=== PATIENT | female | born 1990 | race Two or more races ===

== ENCOUNTER 2016-10-15 20:41 | Inpatient (IN) | payer OTHER ==
[~2016-10-15] VITALS: Ht 154.9 cm; Wt 58.0 kg
[~2016-10-15 20:41] MED LIST: ADDERALL XR 1010 MG PO; ADDERALL10 MG PO; ALPRAZOLAM0.25 M2 PO; AMBIEN5 MG PO; ANUSOL HC,ANUCO25 MG PR; ASPIR-LOW81 MG PO; ASPIRIN EC325 MG PO; ASPIRIN325 MG PO; ATARAX,VISTARIL25 MG PO; ATORVASTATIN CA40 MG PO; AVENTYL,PAMELOR50 MG PO; Advair HFA 115/21 IH; Afrin,Genasal Decon, NS; BACLOFEN PUMP; BACLOFEN10 MG PO; BACLOFEN20 MG PO; BACTRIM,SEPT1 TABLET PO; BOTOX100 UNITS IJ; Buspar PO; CARVEDILOL3.125 MG PO; CEFTIN500 MG PO; CELEXA10 M1 PO; CIPRO500 MG PO; CLONIDINE HCL0.1 MG PO; CLOPIDOGREL75 MG PO; COLACE100 MG PO; COLACE50 MG PO; COREG3.125 M1 PO; CYCLOBENZAPRINE10 MG PO; CYMBALTA60 MG PO; Cipro PO; Colace PO; Combivent IH; DULOXETINE HCL60 MG PO; ENDOCET 7.5-321 EACH PO; ERGOCALCIF50000 UNIT PO; ESCITALOPRAM OX20 MG PO; EXCEDRIN EXT1 TABLET; EXCEDRIN MIGRA1 EAC3 PO; FAMOTIDINE20 MG PO; FENTANYL1 EAC5 TD; FLEXERIL10 MG PO; FLORASTOR250 MG PO; FOLIC ACID1 MG PO; Flagyl PO; Folvite PO; GABAPENTIN300 MG PO; GABAPENTIN400 M1 PO; GABAPENTIN600 MG PO; KADIAN30 MG PO; KEFLEX500 MG PO; LAMICTAL200 MG PO; LEVAQUIN250 MG PO; LEVAQUIN500 MG PO; LEVAQUIN750 MG PO; LEVOFLOXACIN500 MG PO; LIDOCREAM15 GM TP; LIDODERM 5% P1 PATCH PO; LIDODERM 5% P1 PATCH TD; LISINOPRIL2.5 MG PO; LOVENOX40 MG/0.4 SC; LYRICA150 MG PO; LYRICA50 MG PO; LYRICA75 MG PO; LaMICtal PO; MACROBID100 MG PO; MEGACE20 MG PO; METHOTREXATE2.5 MG PO; MICONAZOLE NITR45 GM VG; MORPHINE SULFAT30 M2 PO; MS CONTIN,ORAMO30 MG PO; MS Contin,Oramorph S PO; Mycostatin TP; NABI650T PO; NAPROSYN500 MG PO; NAPROXEN500 MG PO; NEURONTIN300 MG PO; NEURONTIN600 MG PO; NEXIUM40 MG PO; NUCYNTA75 MG PO; Naprosyn PO; Neurontin PO; ONDANSETRON HCL4 MG PO; OXYCODONE HCL10 MG PO; OXYCODONE HCL15 MG PO; OXYCODONE HCL30 MG PO; OXYCODONE-ACET1 EACH PO; OXYCONTIN20 MG PO; OXYCONTIN30 MG PO; OXYCONTIN40 MG PO; OxyCONTIN PO; PERCOCET 5/31 TABLET PO; PERCOCET 7.51 TABLET PO; PHENERGAN25 MG PR; PLAVIX75 MG PO; POTASSIUM CITR10 MEQ PO; PRAVACHOL10 MG PO; PRENATAL PLUS1 EAC3 PO; PREVACID SOLUTAB; PROMETHAZINE HC25 M1 PO; PROTONIX40 MG PO; PROVERA,CYCRIN10 MG PO; Prevacid PO; Pristiq PO; Protonix PO; RANITIDINE HCL300 MG PO; ROZEREM8 MG PO; SENNA PLUS TAB1 EACH PO; SENNA-DOCUSATE1 EAC1 PO; SENNA-TIME S T1 EACH PO; SENOKOT8.6 MG PO; SILVADENE,SSD,T20 GM TP; Sodium Bicarbonate PO; TIZANIDINE HCL4 M1 PO; TIZANIDINE HCL4 MG PO; TOPAMAX50 MG PO; TOPIRAMATE50 MG PO; TORADOL10 MG PO; TRAZODONE HCL50 MG PO; TREXIMET 85-1 TABLET PO; TREXIMET 85-501 EACH PO; TROKENDI XR50 MG PO; TYLENOL REGULA325 MG PO; Treximet 85-500 PO; Tylenol Regular Stre PO; VENLAFAXINE HC150 M1 PO; VENLAFAXINE HCL75 M3 PO; VIBRAMYCIN100 MG PO; Vibramycin, Doryx PO; Vitamin B-12 PO; XANAX0.25 MG PO; XARELTO15 MG PO; XARELTO20 MG PO; Xanax PO; ZANAFLEX4 M1 PO; ZANAFLEX4 MG PO; ZANTAC150 MG PO; ZANTAC300 MG PO; ZOFRAN ODT4 MG PO; ZOFRAN4 MG PO; ZOLPIDEM TART6.25 MG PO; ZOLPIDEM TARTRAT5 MG PO; ZYVOX600 MG PO; Zofran ODT PO; [UNRECOGNIZED DRUG - OTHER] RC; baclofen pump; oxyCODONE PO
[2016-10-15 22:39] LABS: ADD MIUA? YES; BILIRUBIN NEGATIVE; BLOOD NEGATIVE; COLOR AMBER ((YELLOW)); GLUCOSE (STRIP) NEGATIVE; KETONES NEGATIVE; LEUKOCYTES MODERATE; NITRITE NEGATIVE; PROTEIN (STRIP) 100; SPECIFIC GRAVITY 1.005 (1.000-1.030); UROBILINOGEN 0.2 MG/DL (0.2-1.0)
[2016-10-15 22:55] LABS: HEMATOCRIT 33.2 % (36.0-46.0); MCH 27.9 PG (29.0-34.0); MCHC 32.5 G/DL (30.0-36.0); MCV 85.8 FL (83-99); NRBC (%) 0.4 /100 WBC (0-0); PLATELET COUNT 545 K/uL (156-360); RBC DIS.WIDTH-CV 19.8 % (11.8-14.6); RBC DIS.WIDTH-SD 57.1 % (39-53); RED BLOOD COUNT 3.87 M/uL (3.80-5.20); WHITE BLOOD COUNT 27.3 K/uL (4.1-10.2)
[2016-10-15 22:59] LABS: AMORPHOUS PHOSPHATE CRYSTALS 3+; CRYSTALS PRESENT; EPITHELIAL CELLS RARE /HPF; UCUL ADDED? YES; WHITE BLOOD CELLS 15-20 /HPF (0-5)
[2016-10-15 23:08] LABS: CHLORIDE 116 mEq/L (99-109); POTASSIUM 3.1 mEq/L (3.7-5.4); SODIUM 137 mEq/L (136-147)
[2016-10-15 23:10] LABS: GLUCOSE 94 mg/dL (70-99)
[2016-10-15 23:11] LABS: ANION GAP 15 MEQ/L (2-14)
[2016-10-15 23:12] LABS: TOTAL BILIRUBIN 0.3 mg/dL (0.0-1.0)
[2016-10-15 23:13] LABS: ALKALINE PHOSPHATASE 140 IU/L (3-129)
[2016-10-15 23:14] LABS: GFR ESTIMATE (CALCULATED) 28 mL/min/
[2016-10-15 23:17] LABS: LIPASE 77 U/L (1.0-51.0)
[2016-10-15 23:24] LABS: QUANTITATIVE HCG < 4.0 MIU/ML
[2016-10-15 23:36] LABS: UREA NITROGEN (BUN) 109 mg/dL (9-23)
[2016-10-15] MEDS ORDERED: SYNTHROID25 MCG PO (23:47)
[2016-10-15] MEDS ORDERED: PROZAC20 MG PO (23:47)
[2016-10-15] MEDS ORDERED: HYDROCODON-ACE1 EAC8 PO (23:49)
[2016-10-16] VITALS (26 sets, daily range): BP systolic 78–158; BP diastolic 44–88
[2016-10-16 00:23] LABS: BASE EXCESS -24.2 mEq/L (-3 to +3); BICARBONATE 5.8 mEq/L (22-26); CARBOXY HGB 1.5 % (0-5); COMMENTS - BLOOD GASES A+C+; DEVICE RA; METHEMOGLOBIN 3.7 % (0-1.5); PCO2 24 mm Hg (35-45); PO2 109 mm Hg (80-100); SITE RR; pH 6.99 (7.35-7.45)
[2016-10-16 00:24] LABS: TOTAL RESP RATE 13 resp/min
[2016-10-16 03:40] LABS: METH RESISTANT S AUREUS PCR NEGATIVE (NEGATIVE)
[2016-10-16 03:55] LABS: PROBE CHECK PASS; SPECIMEN PROCESSING CONTROL PASS
[2016-10-16 06:27] LABS: CARBON DIOXIDE (BICARBONATE) 7.5 MEQ/L (20-31)
[2016-10-16 06:55] LABS: HEMATOCRIT 28.7 % (36.0-46.0); MCH 28.3 PG (29.0-34.0); MCHC 32.4 G/DL (30.0-36.0); MCV 87.2 FL (83-99); MEAN PLAT.VOLUME 10.1 uM^3 (9.5-12.4); NRBC (%) 0.4 /100 WBC (0-0); PLATELET COUNT 439 K/uL (156-360); RBC DIS.WIDTH-CV 20.2 % (11.8-14.6); RBC DIS.WIDTH-SD 58.8 % (39-53); RED BLOOD COUNT 3.29 M/uL (3.80-5.20); WHITE BLOOD COUNT 22.9 K/uL (4.1-10.2)
[2016-10-16 07:41] LABS: ANION GAP 19 MEQ/L (2-14); CHLORIDE 119 MEQ/L (99-109); GFR ESTIMATE (CALCULATED) 36 mL/min/; GLUCOSE 138 mg/dL (70-99); SAMPLE HEMOLYSIS CHECK 0; SAMPLE ICTERIC CHECK 0; SAMPLE LIPEMIA CHECK 0; SODIUM 143 MEQ/L (136-147); UREA NITROGEN (BUN) 89 mg/dL (9-23)
[2016-10-16 07:42] LABS: POTASSIUM 2.4 MEQ/L (3.7-5.4)
[2016-10-16 08:22] LABS: BASE EXCESS -21.3 mEq/L (-3 to +3); BICARBONATE 7.1 mEq/L (22-26); CARBOXY HGB 0.9 % (0-5); COMMENTS - BLOOD GASES C+; DEVICE ROOM AIR; FI02 21 %; METHEMOGLOBIN 4.2 % (0-1.5); PCO2 24 mm Hg (35-45); PO2 117 mm Hg (80-100); SITE RB
[2016-10-16 08:23] LABS: pH 7.08 (7.35-7.45)
[2016-10-16 09:06] LABS: MAGNESIUM 1.8 mg/dl (1.3-2.7)
[2016-10-16 13:06] LABS: BASE EXCESS -17.9 mEq/L (-3 to +3); BICARBONATE 9.3 mEq/L (22-26); CARBOXY HGB 1.1 % (0-5); METHEMOGLOBIN 4.5 % (0-1.5); PCO2 26 mm Hg (35-45); PO2 211 mm Hg (80-100); pH 7.16 (7.35-7.45)
[2016-10-16 13:07] LABS: COMMENTS - BLOOD GASES A+C+; DEVICE VENT; FI02 40 %; MECHANICAL RATE 16 resp/min; MODE AC; PEEP 5 CM/H20; SITE LR; TIDAL VOLUME 380 ML; TOTAL RESP RATE 29 resp/min
[2016-10-16 14:09] LABS: ANION GAP 14 MEQ/L (2-14); CHLORIDE 116 MEQ/L (99-109); GFR ESTIMATE (CALCULATED) 41 mL/min/; POTASSIUM 2.6 MEQ/L (3.7-5.4); SAMPLE HEMOLYSIS CHECK 0; SAMPLE ICTERIC CHECK 0; SAMPLE LIPEMIA CHECK 0; SODIUM 141 MEQ/L (136-147); UREA NITROGEN (BUN) 84 mg/dL (9-23)
[2016-10-16 14:13] LABS: GLUCOSE 226 mg/dL (70-99)
[2016-10-16 14:14] LABS: MAGNESIUM 1.5 mg/dl (1.3-2.7)
[2016-10-16 16:51] LABS: ANION GAP 12 MEQ/L (2-14); CHLORIDE 120 MEQ/L (99-109); GFR ESTIMATE (CALCULATED) 41 mL/min/; GLUCOSE 169 mg/dL (70-99); MAGNESIUM 1.5 mg/dl (1.3-2.7); POTASSIUM 2.8 MEQ/L (3.7-5.4); SAMPLE HEMOLYSIS CHECK 0; SAMPLE ICTERIC CHECK 0; SAMPLE LIPEMIA CHECK 0; SODIUM 142 MEQ/L (136-147); UREA NITROGEN (BUN) 79 mg/dL (9-23)
[2016-10-16 20:39] LABS: ANION GAP 11 MEQ/L (2-14); CHLORIDE 119 MEQ/L (99-109); GFR ESTIMATE (CALCULATED) 48 mL/min/; GLUCOSE 119 mg/dL (70-99); MAGNESIUM 2.9 mg/dl (1.3-2.7); POTASSIUM 2.6 MEQ/L (3.7-5.4); SAMPLE HEMOLYSIS CHECK 0; SAMPLE ICTERIC CHECK 0; SAMPLE LIPEMIA CHECK 0; SODIUM 147 MEQ/L (136-147); UREA NITROGEN (BUN) 71 mg/dL (9-23)
[2016-10-17] VITALS (20 sets, daily range): BP systolic 81–120; BP diastolic 41–78
[2016-10-17 00:30] LABS: POINT-OF-CARE METER ID UU13113803
[2016-10-17 04:47] LABS: CHLORIDE 119 mEq/L (99-109); MAGNESIUM 2.6 mg/dL (1.3-2.7); SODIUM 151 mEq/L (136-147)
[2016-10-17 04:49] LABS: GLUCOSE 122 mg/dL (70-99)
[2016-10-17 04:50] LABS: ANION GAP 11 MEQ/L (2-14)
[2016-10-17 04:53] LABS: GFR ESTIMATE (CALCULATED) 48 mL/min/; UREA NITROGEN (BUN) 65 mg/dL (9-23)
[2016-10-17 04:54] LABS: CREATINE KINASE 61 IU/L (1-294)
[2016-10-17 04:57] LABS: POTASSIUM 3.6 mEq/L (3.7-5.4)
[2016-10-17 05:17] LABS: EOSINOPHIL (%) 0.4 % (0-5); EOSINOPHIL COUNT 0.1 K/uL (0-0.3); HEMATOCRIT 22.2 % (36.0-46.0); IMMATURE GRANULOCYTE (%) 0.7 % (0.0-0.7); IMMATURE GRANULOCYTE COUNT 0.2 K/uL; INSTRUMENT ABS NEUTROPHIL CT 24.3 K/uL; MCH 28.3 PG (29.0-34.0); MCHC 34.7 G/DL (30.0-36.0); MCV 81.6 FL (83-99); MEAN PLAT.VOLUME 10.1 uM^3 (9.5-12.4); MONOCYTE (%) 4.7 % (3-12); MONOCYTE COUNT 1.3 K/uL (0-0.8); NEUTROPHIL (%) 90.4 % (45-76); NEUTROPHIL COUNT 24.3 K/uL (1.8-6.4); NRBC (%) 0.2 /100 WBC (0-0); PLATELET COUNT 408 K/uL (156-360); RBC DIS.WIDTH-CV 18.2 % (11.8-14.6); RBC DIS.WIDTH-SD 47.7 % (39-53); RED BLOOD COUNT 2.72 M/uL (3.80-5.20); WHITE BLOOD COUNT 26.9 K/uL (4.1-10.2)
[2016-10-17 05:45] LABS: TRIGLYCERIDES 108 MG/DL (Normal: <150)
[2016-10-17 05:48] LABS: BASE EXCESS -0.7 mEq/L (-3 to +3); CARBOXY HGB 1.4 % (0-5); METHEMOGLOBIN 4.1 % (0-1.5)
[2016-10-17 05:50] LABS: BICARBONATE 22.6 mEq/L (22-26); PCO2 31 mm Hg (35-45); PO2 45 mm Hg (80-100); SITE LR; pH 7.47 (7.35-7.45)
[2016-10-17 05:51] LABS: COMMENTS - BLOOD GASES C+A+ MIXED VENOUS; DEVICE 840 VENT; FI02 30 %; MECHANICAL RATE 16 resp/min; MODE AC; PEEP 5 CM/H20; TIDAL VOLUME 380 ML; TOTAL RESP RATE 27 resp/min
[2016-10-17 08:51] LABS: BASE EXCESS 0.1 mEq/L (-3 to +3); BICARBONATE 20.6 mEq/L (22-26); CARBOXY HGB 1.2 % (0-5); METHEMOGLOBIN 4.2 % (0-1.5); PCO2 20 mm Hg (35-45); PO2 92 mm Hg (80-100)
[2016-10-17 08:52] LABS: COMMENTS - BLOOD GASES A+C+; DEVICE VENT; FI02 40 %; SITE LR
[2016-10-17 08:53] LABS: INSPIRATION TIME 0.83 seconds; MECHANICAL RATE 16 resp/min; MODE PC; PEEP 5 CM/H20; PRESSURE CONTROL VENTILATION 15 CM H20; TIDAL VOLUME 454 ML; TOTAL RESP RATE 34 resp/min; pH 7.62 (7.35-7.45)
[2016-10-17 10:45] LABS: BASE EXCESS -1.5 mEq/L (-3 to +3); BICARBONATE 22.4 mEq/L (22-26); CARBOXY HGB 1.1 % (0-5); METHEMOGLOBIN 4.3 % (0-1.5); PCO2 33 mm Hg (35-45); pH 7.44 (7.35-7.45)
[2016-10-17 11:07] LABS: IRON 24 MCG/DL (35-150)
[2016-10-17 11:29] LABS: FERRITIN 41 NG/ML (10-291)
[2016-10-17 12:26] LABS: COMMENTS - BLOOD GASES A+C+; DEVICE VENT; FI02 40 %; MECHANICAL RATE 16 resp/min; MODE ACVC; PO2 108 mm Hg (80-100); SITE LR; TIDAL VOLUME 380 ML; TOTAL RESP RATE 20 resp/min
[2016-10-17 12:27] LABS: PEEP 5 CM/H20
[2016-10-17 12:51] LABS: POINT-OF-CARE METER ID UU13113803
[2016-10-17 13:08] LABS: ANION GAP 11 MEQ/L (2-14); CHLORIDE 115 MEQ/L (99-109); GFR ESTIMATE (CALCULATED) 48 mL/min/; GLUCOSE 94 mg/dL (70-99); SAMPLE HEMOLYSIS CHECK 0; SAMPLE ICTERIC CHECK 0; SAMPLE LIPEMIA CHECK 0; SODIUM 148 MEQ/L (136-147); UREA NITROGEN (BUN) 55 mg/dL (9-23)
[2016-10-17 13:12] LABS: MAGNESIUM 2.3 mg/dl (1.3-2.7)
[2016-10-17 20:19] LABS: ANION GAP 15 MEQ/L (2-14); CHLORIDE 117 MEQ/L (99-109); GFR ESTIMATE (CALCULATED) 52 mL/min/; GLUCOSE 130 mg/dL (70-99); MAGNESIUM 2.1 mg/dl (1.3-2.7); POTASSIUM 3.2 MEQ/L (3.7-5.4); SAMPLE HEMOLYSIS CHECK 0; SAMPLE ICTERIC CHECK 0; SAMPLE LIPEMIA CHECK 0; SODIUM 150 MEQ/L (136-147); UREA NITROGEN (BUN) 53 mg/dL (9-23)
[2016-10-18] VITALS (28 sets, daily range): BP systolic 95–140; BP diastolic 48–87
[2016-10-18 05:17] LABS: POINT-OF-CARE METER ID UU13113803
[2016-10-18 05:58] LABS: ANION GAP 12 MEQ/L (2-14); CHLORIDE 116 MEQ/L (99-109); GFR ESTIMATE (CALCULATED) 48 mL/min/; POTASSIUM 3.8 MEQ/L (3.7-5.4); SAMPLE HEMOLYSIS CHECK 0; SAMPLE ICTERIC CHECK 0; SAMPLE LIPEMIA CHECK 0; SODIUM 146 MEQ/L (136-147); UREA NITROGEN (BUN) 45 mg/dL (9-23)
[2016-10-18 05:59] LABS: GLUCOSE 85 mg/dL (70-99)
[2016-10-18 06:22] LABS: EOSINOPHIL (%) 0.4 % (0-5); EOSINOPHIL COUNT 0.1 K/uL (0-0.3); IMMATURE GRANULOCYTE (%) 0.7 % (0.0-0.7); IMMATURE GRANULOCYTE COUNT 0.1 K/uL; INSTRUMENT ABS NEUTROPHIL CT 14.9 K/uL; LYMPHOCYTE COUNT 1.7 K/uL (1.0-2.8); MCH 28.6 PG (29.0-34.0); MONOCYTE (%) 8.1 % (3-12); MONOCYTE COUNT 1.5 K/uL (0-0.8); NEUTROPHIL (%) 81.3 % (45-76); NEUTROPHIL COUNT 14.9 K/uL (1.8-6.4); NRBC (%) 0.4 /100 WBC (0-0); RBC DIS.WIDTH-CV 19.7 % (11.8-14.6); RBC DIS.WIDTH-SD 50.9 % (39-53); RED BLOOD COUNT 2.38 M/uL (3.80-5.20)
[2016-10-18 06:47] LABS: WHITE BLOOD COUNT 18.4 K/uL (4.1-10.2)
[2016-10-18 06:57] LABS: MEAN PLAT.VOLUME 10.4 uM^3 (9.5-12.4); PLAT.SUFFICIENCY ADEQUATE
[2016-10-18 07:17] LABS: PLATELET COUNT 262 K/uL (156-360)
[2016-10-18 12:25] LABS: POINT-OF-CARE METER ID UU13113803
[2016-10-18 13:33] LABS: ANION GAP 13 MEQ/L (2-14); CHLORIDE 115 MEQ/L (99-109); GFR ESTIMATE (CALCULATED) 48 mL/min/; MAGNESIUM 1.8 mg/dl (1.3-2.7); POTASSIUM 3.8 MEQ/L (3.7-5.4); SAMPLE HEMOLYSIS CHECK 0; SAMPLE ICTERIC CHECK 0; SAMPLE LIPEMIA CHECK 0; SODIUM 143 MEQ/L (136-147); UREA NITROGEN (BUN) 43 mg/dL (9-23)
[2016-10-18 13:34] LABS: GLUCOSE 116 mg/dL (70-99)
[2016-10-18 18:08] LABS: POINT-OF-CARE METER ID UU13113803
[2016-10-18 20:15] LABS: ANION GAP 14 MEQ/L (2-14); CHLORIDE 114 MEQ/L (99-109); GFR ESTIMATE (CALCULATED) 52 mL/min/; GLUCOSE 89 mg/dL (70-99); POTASSIUM 4.3 MEQ/L (3.7-5.4); SAMPLE HEMOLYSIS CHECK 0; SAMPLE ICTERIC CHECK 0; SAMPLE LIPEMIA CHECK 0; SODIUM 143 MEQ/L (136-147); UREA NITROGEN (BUN) 42 mg/dL (9-23)
[2016-10-18 20:33] LABS: MAGNESIUM 2.6 mg/dl (1.3-2.7)
[2016-10-19] VITALS (17 sets, daily range): BP systolic 115–139; BP diastolic 57–88
[2016-10-19 00:18] LABS: POINT-OF-CARE METER ID UU13113803
[2016-10-19 00:59] LABS: BASOPHIL COUNT 0.1 K/uL (0-0.1); EOSINOPHIL (%) 0.5 % (0-5); EOSINOPHIL COUNT 0.1 K/uL (0-0.3); IMMATURE GRANULOCYTE (%) 0.8 % (0.0-0.7); IMMATURE GRANULOCYTE COUNT 0.2 K/uL; INSTRUMENT ABS NEUTROPHIL CT 17.8 K/uL; LYMPHOCYTE COUNT 0.9 K/uL (1.0-2.8); MCH 28.7 PG (29.0-34.0); MCHC 33.9 G/DL (30.0-36.0); MCV 84.6 FL (83-99); MEAN PLAT.VOLUME 10.2 uM^3 (9.5-12.4); MONOCYTE (%) 6.7 % (3-12); MONOCYTE COUNT 1.4 K/uL (0-0.8); NEUTROPHIL (%) 87.3 % (45-76); NEUTROPHIL COUNT 17.8 K/uL (1.8-6.4); NRBC (%) 0.1 /100 WBC (0-0); PLATELET COUNT 264 K/uL (156-360); RBC DIS.WIDTH-CV 17.8 % (11.8-14.6); WHITE BLOOD COUNT 20.4 K/uL (4.1-10.2)
[2016-10-19 01:19] LABS: CHLORIDE 114 mEq/L (99-109); SODIUM 143 mEq/L (136-147)
[2016-10-19 01:20] LABS: MAGNESIUM 2.4 mg/dL (1.3-2.7)
[2016-10-19 01:21] LABS: GLUCOSE 95 mg/dL (70-99)
[2016-10-19 01:23] LABS: ANION GAP 14 MEQ/L (2-14)
[2016-10-19 01:25] LABS: GFR ESTIMATE (CALCULATED) 41 mL/min/
[2016-10-19 01:26] LABS: UREA NITROGEN (BUN) 44 mg/dL (9-23)
[2016-10-19 02:28] LABS: SAMPLE HEMOLYSIS CHECK 0; SAMPLE ICTERIC CHECK 0; SAMPLE LIPEMIA CHECK 0
[2016-10-19 05:52] LABS: POINT-OF-CARE METER ID UU14174217
[2016-10-19 06:10] LABS: BASOPHIL COUNT 0.1 K/uL (0-0.1); EOSINOPHIL (%) 0.3 % (0-5); EOSINOPHIL COUNT 0.1 K/uL (0-0.3); HEMATOCRIT 32.7 % (36.0-46.0); IMMATURE GRANULOCYTE (%) 0.7 % (0.0-0.7); IMMATURE GRANULOCYTE COUNT 0.1 K/uL; INSTRUMENT ABS NEUTROPHIL CT 16.9 K/uL; LYMPHOCYTE COUNT 1.4 K/uL (1.0-2.8); MCH 28.6 PG (29.0-34.0); MCHC 33.6 G/DL (30.0-36.0); MCV 84.9 FL (83-99); MEAN PLAT.VOLUME 10.6 uM^3 (9.5-12.4); MONOCYTE (%) 5.5 % (3-12); MONOCYTE COUNT 1.1 K/uL (0-0.8); NEUTROPHIL (%) 86.3 % (45-76); NEUTROPHIL COUNT 16.9 K/uL (1.8-6.4); NRBC (%) 0.2 /100 WBC (0-0); PLATELET COUNT 245 K/uL (156-360); RBC DIS.WIDTH-CV 18.4 % (11.8-14.6); RBC DIS.WIDTH-SD 50.9 % (39-53); RED BLOOD COUNT 3.85 M/uL (3.80-5.20); WHITE BLOOD COUNT 19.5 K/uL (4.1-10.2)
[2016-10-19 07:57] LABS: ANION GAP 15 MEQ/L (2-14); CHLORIDE 114 MEQ/L (99-109); GFR ESTIMATE (CALCULATED) 41 mL/min/; GLUCOSE 85 mg/dL (70-99); MAGNESIUM 2.6 mg/dl (1.3-2.7); POTASSIUM 4.1 MEQ/L (3.7-5.4); SAMPLE HEMOLYSIS CHECK 0; SAMPLE ICTERIC CHECK 0; SAMPLE LIPEMIA CHECK 0; SODIUM 145 MEQ/L (136-147); UREA NITROGEN (BUN) 43 mg/dL (9-23)
[2016-10-19 10:35] LABS: BASE EXCESS -6.7 mEq/L (-3 to +3); BICARBONATE 18.5 mEq/L (22-26); CARBOXY HGB 1.2 % (0-5); METHEMOGLOBIN 2.8 % (0-1.5)
[2016-10-19 10:36] LABS: PCO2 35 mm Hg (35-45); PO2 121 mm Hg (80-100); pH 7.33 (7.35-7.45)
[2016-10-19 10:37] LABS: COMMENTS - BLOOD GASES NAC+; CONTINUOUS POS AIRWAY PRESSURE 5 cm H2O; DEVICE 840; FI02 30 %; MODE TUBE COMPENSATION; SITE LR; TOTAL RESP RATE 20 resp/min
[2016-10-19 12:38] LABS: POINT-OF-CARE METER ID UU14174217
[2016-10-19 18:15] LABS: POINT-OF-CARE METER ID UU14174217
[2016-10-19 22:14] LABS: ANION GAP 14 MEQ/L (2-14); CHLORIDE 111 MEQ/L (99-109); GFR ESTIMATE (CALCULATED) 44 mL/min/; GLUCOSE 100 mg/dL (70-99); MAGNESIUM 2.2 mg/dl (1.3-2.7); POTASSIUM 3.2 MEQ/L (3.7-5.4); SAMPLE HEMOLYSIS CHECK 0; SAMPLE ICTERIC CHECK 0; SAMPLE LIPEMIA CHECK 0; SODIUM 144 MEQ/L (136-147); UREA NITROGEN (BUN) 37 mg/dL (9-23)
[2016-10-20] VITALS (8 sets, daily range): BP systolic 111–151; BP diastolic 56–79
[2016-10-20 07:29] LABS: EOSINOPHIL (%) 1.7 % (0-5); EOSINOPHIL COUNT 0.2 K/uL (0-0.3); HEMATOCRIT 32.6 % (36.0-46.0); IMMATURE GRANULOCYTE (%) 0.5 % (0.0-0.7); IMMATURE GRANULOCYTE COUNT 0.1 K/uL; INSTRUMENT ABS NEUTROPHIL CT 9.4 K/uL; LYMPHOCYTE COUNT 1.1 K/uL (1.0-2.8); MCH 28.8 PG (29.0-34.0); MCHC 32.8 G/DL (30.0-36.0); MCV 87.9 FL (83-99); MEAN PLAT.VOLUME 10.3 uM^3 (9.5-12.4); MONOCYTE (%) 6.1 % (3-12); MONOCYTE COUNT 0.7 K/uL (0-0.8); NEUTROPHIL (%) 81.7 % (45-76); NEUTROPHIL COUNT 9.4 K/uL (1.8-6.4); PLATELET COUNT 177 K/uL (156-360); RBC DIS.WIDTH-CV 18.7 % (11.8-14.6); RBC DIS.WIDTH-SD 56.9 % (39-53); RED BLOOD COUNT 3.71 M/uL (3.80-5.20); WHITE BLOOD COUNT 11.5 K/uL (4.1-10.2)
[2016-10-20 08:00] LABS: ANION GAP 13 MEQ/L (2-14); CHLORIDE 111 MEQ/L (99-109); GFR ESTIMATE (CALCULATED) 44 mL/min/; GLUCOSE 80 mg/dL (70-99); MAGNESIUM 2.1 mg/dl (1.3-2.7); POTASSIUM 3.8 MEQ/L (3.7-5.4); SAMPLE HEMOLYSIS CHECK 0; SAMPLE ICTERIC CHECK 0; SAMPLE LIPEMIA CHECK 0; SODIUM 142 MEQ/L (136-147); UREA NITROGEN (BUN) 35 mg/dL (9-23)
[2016-10-21] VITALS: BP 109/69
[2016-10-21 04:00] VITALS: BP 93/53
[2016-10-21 06:32] LABS: EOSINOPHIL (%) 2.4 % (0-5); EOSINOPHIL COUNT 0.2 K/uL (0-0.3); HEMATOCRIT 32.9 % (36.0-46.0); IMMATURE GRANULOCYTE (%) 0.5 % (0.0-0.7); IMMATURE GRANULOCYTE COUNT 0.1 K/uL; INSTRUMENT ABS NEUTROPHIL CT 7.4 K/uL; LYMPHOCYTE COUNT 1.1 K/uL (1.0-2.8); MCH 29.1 PG (29.0-34.0); MCHC 33.1 G/DL (30.0-36.0); MCV 87.7 FL (83-99); MEAN PLAT.VOLUME 10.5 uM^3 (9.5-12.4); MONOCYTE (%) 8.9 % (3-12); MONOCYTE COUNT 0.9 K/uL (0-0.8); NEUTROPHIL (%) 76.2 % (45-76); NEUTROPHIL COUNT 7.4 K/uL (1.8-6.4); PLATELET COUNT 175 K/uL (156-360); RBC DIS.WIDTH-CV 18.4 % (11.8-14.6); RBC DIS.WIDTH-SD 56.5 % (39-53); RED BLOOD COUNT 3.75 M/uL (3.80-5.20); WHITE BLOOD COUNT 9.7 K/uL (4.1-10.2)
[2016-10-21 06:37] LABS: CARBON DIOXIDE (BICARBONATE) 24.2 MEQ/L (20-31)
[2016-10-21 07:02] LABS: ANION GAP 11 MEQ/L (2-14); CHLORIDE 108 MEQ/L (99-109); GFR ESTIMATE (CALCULATED) 48 mL/min/; GLUCOSE 93 mg/dL (70-99); MAGNESIUM 1.8 mg/dl (1.3-2.7); SAMPLE HEMOLYSIS CHECK 0; SAMPLE ICTERIC CHECK 0; SAMPLE LIPEMIA CHECK 0; SODIUM 141 MEQ/L (136-147); UREA NITROGEN (BUN) 29 mg/dL (9-23)
[2016-10-21 08:00] VITALS: BP 110/74
[2016-10-21 08:09] LABS: INTACT PARATHYROID HORMONE 414 pg/mL (10-69)
[2016-10-21 12:30] VITALS: BP 121/94
[2016-10-21 19:00] VITALS: BP 125/95
[2016-10-21 22:30] VITALS: BP 133/84
[2016-10-22 06:09] LABS: BASOPHIL COUNT 0.1 K/uL (0-0.1); EOSINOPHIL (%) 3.3 % (0-5); EOSINOPHIL COUNT 0.3 K/uL (0-0.3); IMMATURE GRANULOCYTE (%) 0.7 % (0.0-0.7); IMMATURE GRANULOCYTE COUNT 0.1 K/uL; INSTRUMENT ABS NEUTROPHIL CT 5.5 K/uL; LYMPHOCYTE COUNT 1.2 K/uL (1.0-2.8); MCH 28.6 PG (29.0-34.0); MCHC 31.4 G/DL (30.0-36.0); MCV 91.1 FL (83-99); MEAN PLAT.VOLUME 10.4 uM^3 (9.5-12.4); MONOCYTE (%) 13.1 % (3-12); MONOCYTE COUNT 1.1 K/uL (0-0.8); NEUTROPHIL (%) 67.8 % (45-76); NEUTROPHIL COUNT 5.5 K/uL (1.8-6.4); PLATELET COUNT 169 K/uL (156-360); RBC DIS.WIDTH-CV 18.6 % (11.8-14.6); RED BLOOD COUNT 4.06 M/uL (3.80-5.20); WHITE BLOOD COUNT 8.1 K/uL (4.1-10.2)
[2016-10-22 06:40] LABS: ANION GAP 9 MEQ/L (2-14); CHLORIDE 112 MEQ/L (99-109); GFR ESTIMATE (CALCULATED) 57 mL/min/; GLUCOSE 80 mg/dL (70-99); SAMPLE HEMOLYSIS CHECK 0; SAMPLE ICTERIC CHECK 0; SAMPLE LIPEMIA CHECK 0; SODIUM 143 MEQ/L (136-147); UREA NITROGEN (BUN) 20 mg/dL (9-23)
[2016-10-22] MEDS ORDERED: NABI650T PO (07:16)
[2016-10-22] MEDS ORDERED: ROCALTROL0.5 MCG PO (07:16)
[2016-10-22] MEDS ORDERED: ROCEPHIN 2 GM VI2 GM IV (07:16)
[2016-10-22] MEDS ORDERED: K-DUR20 MEQ PO (07:16)
[2016-10-22] MEDS ORDERED: COLACE100 MG PO (07:16)
[2016-10-22 08:00] VITALS: BP 128/85
== END 2016-10-22 11:05 | disposition home or self-care (01) | DRG 871 ==
LOC: EME 20:41 → EDOF 10-16 01:06 → 4WEST 10-16 01:06
PROVIDERS: Emergency Medicine; Internal Medicine; Internal Medicine Critical Care Medicine; Internal Medicine Nephrology; Obstetrics & Gynecology; Pediatrics; Physician Assistant
PROC: 0BH17EZ Insertion of Endotracheal Airway into Trachea, Via Natural or Artificial Opening (ICD-10-PCS; principal; 2016-10-16)
PROC: 02HV33Z Insertion of Infusion Device into Superior Vena Cava, Percutaneous Approach (ICD-10-PCS; principal; 2016-10-16)
PROC: 5A1945Z Respiratory Ventilation, 24-96 Consecutive Hours (ICD-10-PCS; principal; 2016-10-16)
DX: A41.9 Sepsis, unspecified organism (principal); G93.40 Encephalopathy, unspecified; J96.01 Acute respiratory failure with hypoxia; L89.613 Pressure ulcer of right heel, stage 3; N12 Tubulo-interstitial nephritis, not specified as acute or chronic; E87.0 Hyperosmolality and hypernatremia; N17.9 Acute kidney failure, unspecified; E87.2 Acidosis; G82.20 Paraplegia, unspecified; R65.20 Severe sepsis without septic shock; E87.6 Hypokalemia; N31.9 Neuromuscular dysfunction of bladder, unspecified; Z87.440 Personal history of urinary (tract) infections; G89.29 Other chronic pain; N20.0 Calculus of kidney; F32.9 Major depressive disorder, single episode, unspecified; R41.82 Altered mental status, unspecified; E83.51 Hypocalcemia; D64.9 Anemia, unspecified; E03.9 Hypothyroidism, unspecified; E86.9 Volume depletion, unspecified
CPT/HCPCS: 36600; 71010; 74176; 80048; 80048 91; 80053; 80069; 81003; 82272; 82306; 82330; 82550; 82607; 82652 90; 82728; 82746; 82803; 82948; 83540; 83605; 83690; 83735; 83970; 84100; 84439; 84443; 84466; 84478; 84702; 85025; 85025 91; 85027; 86850; 86900; 86901; 86920; 87040; 87070; 87077; 87086; 87186; 87205; 87641; 93005; 94002; 94003; 94640; 94640 76; 94799; 97530 GP; 99202; 99281; 99285; J0610; J0692; J0696; J1644; J1815; J1940; J2020; J2060; J2405; J2704; J3010; J3475; J3480; J7030; J7050; J7070; J7120; P9016

== ENCOUNTER 2017-03-02 19:54 | Inpatient (IN) | payer OTHER ==
[~2017-03-02] VITALS: Ht 154.9 cm; Wt 53.2 kg
[~2017-03-02 19:54] MED LIST changes: +HYDROCODON-ACE1 EAC8 PO; +K-DUR20 MEQ PO; +PROZAC20 MG PO; +ROCALTROL0.5 MCG PO; +ROCEPHIN 2 GM VI2 GM IV; +SYNTHROID25 MCG PO
[2017-03-02 20:56] LABS: ADD MIUA? YES; BILIRUBIN NEGATIVE; BLOOD NEGATIVE; COLOR AMBER ((YELLOW)); GLUCOSE (STRIP) NEGATIVE; KETONES 5; LEUKOCYTES MODERATE; NITRITE NEGATIVE; PROTEIN (STRIP) >=500; UROBILINOGEN 0.2 MG/DL (0.2-1.0)
[2017-03-02 21:11] LABS: HEMATOCRIT 33.4 % (36.0-46.0); MCH 30.7 PG (29.0-34.0); MCHC 34.4 G/DL (30.0-36.0); MCV 89.1 FL (83-99); MEAN PLAT.VOLUME 10.1 uM^3 (9.5-12.4); NRBC (%) 0.1 /100 WBC (0-0); PLATELET COUNT 417 K/uL (156-360); RBC DIS.WIDTH-CV 15.1 % (11.8-14.6); RBC DIS.WIDTH-SD 49.7 % (39-53); RED BLOOD COUNT 3.75 M/uL (3.80-5.20); WHITE BLOOD COUNT 23.4 K/uL (4.1-10.2)
[2017-03-02 21:12] LABS: AMORPHOUS PHOSPHATE CRYSTALS 3+; BACTERIA 2+ /HPF; EPITHELIAL CELLS 2+ /HPF; MUCUS NONE SEEN /LPF; RED BLOOD CELLS 0-5 /HPF (0-5); UCUL ADDED? YES
[2017-03-02 21:20] LABS: CHLORIDE 112 mEq/L (99-109); POTASSIUM 2.8 mEq/L (3.7-5.4); SODIUM 136 mEq/L (136-147)
[2017-03-02 21:21] LABS: GLUCOSE 97 mg/dL (70-99)
[2017-03-02 21:23] LABS: ANION GAP 19 MEQ/L (2-14)
[2017-03-02 21:25] LABS: GFR ESTIMATE (CALCULATED) 22 mL/min/
[2017-03-02 21:33] LABS: TROP-I INTERPRETATION NEGATIVE; TROPONIN-I < 0.01 ng/mL (0.0-0.30)
[2017-03-02 21:52] LABS: UREA NITROGEN (BUN) 115 mg/dL (9-23)
[2017-03-03] VITALS (10 sets, daily range): BP systolic 103–136; BP diastolic 59–76
[2017-03-03 15:19] LABS: BASE EXCESS -18.4 mEq/L (-3 to +3); CARBOXY HGB 1.4 % (0-5); COMMENTS - BLOOD GASES A+C+; FI02 21 %; MECHANICAL RATE 14 resp/min; METHEMOGLOBIN 2.5 % (0-1.5); PCO2 21 mm Hg (35-45); PO2 110 mm Hg (80-100); SITE LR
[2017-03-03 15:20] LABS: pH 7.19 (7.35-7.45)
[2017-03-03 16:24] LABS: AMPHETAMINES QUANT VALUE 0 NG/ML; BARBITUATES QUANT VALUE 0 NG/ML; BENZODIAZEPINES QUANT VALUE 0 NG/ML; BENZODIAZEPINES, URINE SCREEN Negative (200 ng/mL); PHENCYCLIDINE QUANT VALUE 0 NG/ML
[2017-03-03 18:00] LABS: ANION GAP 18 MEQ/L (2-14); CHLORIDE 118 MEQ/L (99-109); GFR ESTIMATE (CALCULATED) 27 mL/min/; GLUCOSE 126 mg/dL (70-99); MAGNESIUM 1.9 mg/dl (1.3-2.7); POTASSIUM 2.6 MEQ/L (3.7-5.4); SAMPLE HEMOLYSIS CHECK 0; SAMPLE ICTERIC CHECK 0; SAMPLE LIPEMIA CHECK 0; UREA NITROGEN (BUN) 100 mg/dL (9-23)
[2017-03-03 18:03] LABS: SODIUM 143 MEQ/L (136-147)
[2017-03-03 18:45] LABS: METH RESISTANT S AUREUS PCR NEGATIVE (NEGATIVE)
[2017-03-03 18:51] LABS: PROBE CHECK PASS; SPECIMEN PROCESSING CONTROL PASS
[2017-03-03 22:17] LABS: EOSINOPHIL (%) 0.1 % (0-5); HEMATOCRIT 26.2 % (36.0-46.0); IMMATURE GRANULOCYTE (%) 0.8 % (0.0-0.7); IMMATURE GRANULOCYTE COUNT 0.1 K/uL; INSTRUMENT ABS NEUTROPHIL CT 16.6 K/uL; LYMPHOCYTE COUNT 0.5 K/uL (1.0-2.8); MCH 30.3 PG (29.0-34.0); MCHC 34.7 G/DL (30.0-36.0); MCV 87.3 FL (83-99); MONOCYTE (%) 6.6 % (3-12); MONOCYTE COUNT 1.2 K/uL (0-0.8); NEUTROPHIL (%) 89.9 % (45-76); NEUTROPHIL COUNT 16.6 K/uL (1.8-6.4); NRBC (%) 0.2 /100 WBC (0-0); PLATELET COUNT 303 K/uL (156-360); RBC DIS.WIDTH-CV 15.1 % (11.8-14.6); RBC DIS.WIDTH-SD 48.1 % (39-53); WHITE BLOOD COUNT 18.4 K/uL (4.1-10.2)
[2017-03-03 22:26] LABS: CHLORIDE 121 mEq/L (99-109); POTASSIUM 2.5 mEq/L (3.7-5.4); SODIUM 148 mEq/L (136-147)
[2017-03-03 22:27] LABS: GLUCOSE 118 mg/dL (70-99)
[2017-03-03 22:29] LABS: ANION GAP 15 MEQ/L (2-14)
[2017-03-03 22:31] LABS: GFR ESTIMATE (CALCULATED) 32 mL/min/
[2017-03-03 22:39] LABS: PROTHROMBIN TIME 11.5 SEC (10.2-12.9)
[2017-03-03 22:41] LABS: UREA NITROGEN (BUN) 106 mg/dL (9-23)
[2017-03-03 22:42] LABS: PTT 30.5 SEC (25-37)
[2017-03-04] VITALS (22 sets, daily range): BP systolic 95–128; BP diastolic 58–92
[2017-03-04 02:41] LABS: CHLORIDE 122 mEq/L (99-109); SODIUM 149 mEq/L (136-147)
[2017-03-04 02:43] LABS: GLUCOSE 110 mg/dL (70-99)
[2017-03-04 02:44] LABS: ANION GAP 14 MEQ/L (2-14)
[2017-03-04 02:47] LABS: GFR ESTIMATE (CALCULATED) 32 mL/min/
[2017-03-04 02:48] LABS: UREA NITROGEN (BUN) 95 mg/dL (9-23)
[2017-03-04 02:49] LABS: POTASSIUM 3.1 mEq/L (3.7-5.4)
[2017-03-04 05:16] LABS: BASE EXCESS -9.6 mEq/L (-3 to +3); BICARBONATE 14.5 mEq/L (22-26); CARBOXY HGB 1.4 % (0-5); COMMENTS - BLOOD GASES C+; FI02 21 %; METHEMOGLOBIN 2.3 % (0-1.5); PCO2 25 mm Hg (35-45); PO2 93 mm Hg (80-100); SITE LR; TOTAL RESP RATE 15 resp/min; pH 7.37 (7.35-7.45)
[2017-03-04 05:59] LABS: HEMATOCRIT 26.3 % (36.0-46.0); MCH 30.3 PG (29.0-34.0); MCHC 34.6 G/DL (30.0-36.0); MCV 87.7 FL (83-99); MEAN PLAT.VOLUME 10.7 uM^3 (9.5-12.4); NRBC (%) 0.2 /100 WBC (0-0); PLATELET COUNT 261 K/uL (156-360); RBC DIS.WIDTH-CV 15.2 % (11.8-14.6); RBC DIS.WIDTH-SD 48.2 % (39-53); WHITE BLOOD COUNT 15.5 K/uL (4.1-10.2)
[2017-03-04 07:12] LABS: ABS NEUTROPHIL COUNT 14.4; ANISOCYTOSIS 2+; BAND NEUTROPHILS 0.8 % (0-8.0); EOSINOPHIL ABS CT 0; INSTRUMENT ABS NEUTROPHIL CT 13.3 K/uL; LYMPHOCYTES 3.5 % (15.0-45.0); MACROCYTES 2+; PLAT.SUFFICIENCY ADEQUATE; SEG.NEUTROPHILS 92.2 % (46.0-76.0)
[2017-03-04 07:18] LABS: ALKALINE PHOSPHATASE 73 IU/L (3-129); ANION GAP 16 MEQ/L (2-14); CHLORIDE 124 MEQ/L (99-109); GFR ESTIMATE (CALCULATED) 36 mL/min/; GLUCOSE 108 mg/dL (70-99); SAMPLE HEMOLYSIS CHECK 1; SAMPLE ICTERIC CHECK 0; SAMPLE LIPEMIA CHECK 0; SODIUM 151 MEQ/L (136-147); TOTAL BILIRUBIN 0.4 MG/DL (0.0-1.0); UREA NITROGEN (BUN) 87 mg/dL (9-23)
[2017-03-04 07:28] LABS: POTASSIUM 3.9 MEQ/L (3.7-5.4)
[2017-03-04 08:03] LABS: INTACT PARATHYROID HORMONE 79 pg/mL (10-69)
[2017-03-04 17:57] LABS: UR CREATININE CONCENTRATION 8.4 MG/DL
[2017-03-04 18:29] LABS: ANION GAP 11 MEQ/L (2-14); CHLORIDE 128 MEQ/L (99-109); GFR ESTIMATE (CALCULATED) 41 mL/min/; GLUCOSE 90 mg/dL (70-99); POTASSIUM 3.2 MEQ/L (3.7-5.4); SAMPLE HEMOLYSIS CHECK 0; SAMPLE ICTERIC CHECK 0; SAMPLE LIPEMIA CHECK 0; SODIUM 154 MEQ/L (136-147); UREA NITROGEN (BUN) 83 mg/dL (9-23)
[2017-03-05] VITALS (11 sets, daily range): BP systolic 105–125; BP diastolic 58–87
[2017-03-05 06:13] LABS: EOSINOPHIL (%) 0.5 % (0-5); EOSINOPHIL COUNT 0.1 K/uL (0-0.3); HEMATOCRIT 21.5 % (36.0-46.0); IMMATURE GRANULOCYTE (%) 0.8 % (0.0-0.7); IMMATURE GRANULOCYTE COUNT 0.1 K/uL; LYMPHOCYTE COUNT 1.5 K/uL (1.0-2.8); MCH 31.4 PG (29.0-34.0); MCHC 35.8 G/DL (30.0-36.0); MCV 87.8 FL (83-99); MEAN PLAT.VOLUME 10.9 uM^3 (9.5-12.4); MONOCYTE COUNT 1.3 K/uL (0-0.8); NEUTROPHIL (%) 72.7 % (45-76); NRBC (%) 0.3 /100 WBC (0-0); PLATELET COUNT 187 K/uL (156-360); RBC DIS.WIDTH-CV 15.2 % (11.8-14.6); RED BLOOD COUNT 2.45 M/uL (3.80-5.20)
[2017-03-05 06:43] LABS: ANION GAP 8 MEQ/L (2-14); CHLORIDE 126 MEQ/L (99-109); GFR ESTIMATE (CALCULATED) 38 mL/min/; GLUCOSE 72 mg/dL (70-99); POTASSIUM 3.2 MEQ/L (3.7-5.4); SAMPLE HEMOLYSIS CHECK 0; SAMPLE ICTERIC CHECK 0; SAMPLE LIPEMIA CHECK 0; SODIUM 149 MEQ/L (136-147); UREA NITROGEN (BUN) 73 mg/dL (9-23)
[2017-03-05 11:56] LABS: IRON 62 MCG/DL (35-150)
[2017-03-05 12:40] LABS: HEMATOCRIT 24.8 % (36.0-46.0); MCH 30.5 PG (29.0-34.0); MCHC 34.7 G/DL (30.0-36.0); MCV 87.9 FL (83-99); MEAN PLAT.VOLUME 10.6 uM^3 (9.5-12.4); NRBC (%) 0.2 /100 WBC (0-0); PLATELET COUNT 200 K/uL (156-360); RBC DIS.WIDTH-CV 15.5 % (11.8-14.6); RED BLOOD COUNT 2.82 M/uL (3.80-5.20); WHITE BLOOD COUNT 10.9 K/uL (4.1-10.2)
[2017-03-05 20:23] LABS: ANION GAP 10 MEQ/L (2-14); CHLORIDE 121 MEQ/L (99-109); GFR ESTIMATE (CALCULATED) 48 mL/min/; SAMPLE HEMOLYSIS CHECK 0; SAMPLE ICTERIC CHECK 0; SAMPLE LIPEMIA CHECK 0; SODIUM 145 MEQ/L (136-147); UREA NITROGEN (BUN) 63 mg/dL (9-23)
[2017-03-05 20:29] LABS: GLUCOSE 111 mg/dL (70-99)
[2017-03-05] MEDS ORDERED: OXYCONTIN20 MG PO (20:47)
[2017-03-05] MEDS ORDERED: ENDOCET 7.5-321 EACH PO (20:54)
[2017-03-06] VITALS: BP 127/83
[2017-03-06 04:00] VITALS: BP 120/82
[2017-03-06 04:48] LABS: HEMATOCRIT 22.5 % (36.0-46.0); MCH 30.7 PG (29.0-34.0); MCHC 35.1 G/DL (30.0-36.0); MCV 87.5 FL (83-99); MEAN PLAT.VOLUME 10.5 uM^3 (9.5-12.4); NRBC (%) 0.3 /100 WBC (0-0); PLATELET COUNT 147 K/uL (156-360); RBC DIS.WIDTH-CV 14.9 % (11.8-14.6); RBC DIS.WIDTH-SD 47.5 % (39-53); RED BLOOD COUNT 2.57 M/uL (3.80-5.20); WHITE BLOOD COUNT 11.3 K/uL (4.1-10.2)
[2017-03-06 05:11] LABS: CHLORIDE 119 mEq/L (99-109); POTASSIUM 2.6 mEq/L (3.7-5.4); SODIUM 142 mEq/L (136-147)
[2017-03-06 05:13] LABS: GLUCOSE 96 mg/dL (70-99)
[2017-03-06 05:14] LABS: ANION GAP 10 MEQ/L (2-14)
[2017-03-06 05:28] LABS: GFR ESTIMATE (CALCULATED) 48 mL/min/; UREA NITROGEN (BUN) 63 mg/dL (9-23)
[2017-03-06 09:00] VITALS: BP 120/74
[2017-03-06 12:30] LABS: CARBON DIOXIDE (BICARBONATE) 15.7 MEQ/L (20-31)
[2017-03-06 12:36] VITALS: BP 126/78
[2017-03-06 13:04] LABS: ANION GAP 9 MEQ/L (2-14); CHLORIDE 119 MEQ/L (99-109); GFR ESTIMATE (CALCULATED) 52 mL/min/; GLUCOSE 107 mg/dL (70-99); SAMPLE HEMOLYSIS CHECK 0; SAMPLE ICTERIC CHECK 0; SAMPLE LIPEMIA CHECK 0; SODIUM 144 MEQ/L (136-147); UREA NITROGEN (BUN) 52 mg/dL (9-23)
[2017-03-06 13:20] LABS: POTASSIUM 3.5 MEQ/L (3.7-5.4)
[2017-03-06 16:02] VITALS: BP 135/84
[2017-03-06 19:20] VITALS: BP 109/68
[2017-03-06 20:29] LABS: ANION GAP 11 MEQ/L (2-14); CHLORIDE 119 MEQ/L (99-109); POTASSIUM 3.3 MEQ/L (3.7-5.4); SAMPLE HEMOLYSIS CHECK 0; SAMPLE ICTERIC CHECK 0; SAMPLE LIPEMIA CHECK 0; SODIUM 147 MEQ/L (136-147)
[2017-03-06 20:32] LABS: MAGNESIUM 1.7 mg/dl (1.3-2.7)
[2017-03-06 20:34] LABS: GFR ESTIMATE (CALCULATED) 48 mL/min/; GLUCOSE 98 mg/dL (70-99); UREA NITROGEN (BUN) 48 mg/dL (9-23)
[2017-03-07] VITALS: BP 124/85
[2017-03-07 04:15] VITALS: BP 163/82
[2017-03-07 08:45] VITALS: BP 124/83
[2017-03-07 09:49] LABS: HEMATOCRIT 23.5 % (36.0-46.0); MCH 31.5 PG (29.0-34.0); MCHC 34.9 G/DL (30.0-36.0); MCV 90.4 FL (83-99); MEAN PLAT.VOLUME 10.6 uM^3 (9.5-12.4); NRBC (%) 0.3 /100 WBC (0-0); PLATELET COUNT 158 K/uL (156-360); RBC DIS.WIDTH-CV 16.3 % (11.8-14.6); RBC DIS.WIDTH-SD 52.5 % (39-53); WHITE BLOOD COUNT 7.6 K/uL (4.1-10.2)
[2017-03-07 10:26] LABS: ANION GAP 10 MEQ/L (2-14); CHLORIDE 117 MEQ/L (99-109); GFR ESTIMATE (CALCULATED) 52 mL/min/; GLUCOSE 100 mg/dL (70-99); MAGNESIUM 1.4 mg/dl (1.3-2.7); POTASSIUM 3.5 MEQ/L (3.7-5.4); SAMPLE HEMOLYSIS CHECK 0; SAMPLE ICTERIC CHECK 0; SAMPLE LIPEMIA CHECK 0; SODIUM 144 MEQ/L (136-147); UREA NITROGEN (BUN) 43 mg/dL (9-23)
[2017-03-07 11:55] VITALS: BP 121/71
[2017-03-07 17:47] VITALS: BP 134/88
[2017-03-07 18:07] LABS: ANION GAP 9 MEQ/L (2-14); CHLORIDE 118 MEQ/L (99-109); GFR ESTIMATE (CALCULATED) 52 mL/min/; GLUCOSE 97 mg/dL (70-99); POTASSIUM 4.1 MEQ/L (3.7-5.4); SAMPLE HEMOLYSIS CHECK 0; SAMPLE ICTERIC CHECK 0; SAMPLE LIPEMIA CHECK 0; SODIUM 144 MEQ/L (136-147); UREA NITROGEN (BUN) 36 mg/dL (9-23)
[2017-03-07 21:00] VITALS: BP 147/84
[2017-03-08 00:45] VITALS: BP 141/80
[2017-03-08 04:17] VITALS: BP 128/74
[2017-03-08 07:40] LABS: ANION GAP 12 MEQ/L (2-14); CHLORIDE 113 MEQ/L (99-109); GFR ESTIMATE (CALCULATED) 52 mL/min/; GLUCOSE 86 mg/dL (70-99); POTASSIUM 4.2 MEQ/L (3.7-5.4); SAMPLE HEMOLYSIS CHECK 0; SAMPLE ICTERIC CHECK 0; SAMPLE LIPEMIA CHECK 0; SODIUM 142 MEQ/L (136-147); UREA NITROGEN (BUN) 27 mg/dL (9-23)
[2017-03-08] MEDS ORDERED: CEFTIN500 MG PO (07:40)
[2017-03-08] MEDS ORDERED: OXYCODONE HCL5 MG PO (07:40)
[2017-03-08] MEDS ORDERED: ENDOCET 5-3251 EACH PO (07:40)
[2017-03-08 09:00] VITALS: BP 127/63
[2017-03-08 10:36] LABS: MAGNESIUM 1.3 mg/dl (1.3-2.7)
[2017-03-08] MEDS ORDERED: RANITIDINE HCL300 MG PO (11:49)
[2017-03-08] MEDS ORDERED: K-DUR20 MEQ PO (11:49)
[2017-03-08] MEDS ORDERED: PROZAC20 MG PO (11:49)
[2017-03-08] MEDS ORDERED: NABI650T PO (11:49)
[2017-03-08] MEDS ORDERED: TUMS500 MG PO (11:49)
[2017-03-08] MEDS ORDERED: ADDERALL XR 1010 MG PO (11:49)
[2017-03-08] MEDS ORDERED: SYNTHROID25 MCG PO (11:49)
== END 2017-03-08 13:25 | disposition home health service (06) | DRG 871 ==
LOC: EME → EDBD 19:54 → EME 19:54 → 4WEST 23:25 → EDOF 23:25 → 4EAST 23:25 → ENRESERV 23:29 → 4EAST 03-03 02:39 → ENRESERV 03-03 15:47 → 4WEST 03-03 16:46 → ENRESERV 03-03 16:46 → 4WEST 03-04 12:11 → ENRESERV 03-06 06:46 → 4EAST 03-06 08:39 → ENRESERV 03-07 08:50 → CANRESERV 03-07 08:50 → 4EAST 03-08 13:25
PROVIDERS: Emergency Medicine; Hospitalist; Internal Medicine; Internal Medicine Critical Care Medicine; Internal Medicine Nephrology; Pediatrics; Physician Assistant; Specialist
DX: A41.51 Sepsis due to Escherichia coli [E. coli] (principal); R65.20 Severe sepsis without septic shock; N39.0 Urinary tract infection, site not specified; N17.9 Acute kidney failure, unspecified; T40.601A Poisoning by unspecified narcotics, accidental (unintentional), initial encounter; F11.20 Opioid dependence, uncomplicated; E87.4 Mixed disorder of acid-base balance; G93.41 Metabolic encephalopathy; E83.51 Hypocalcemia; E83.42 Hypomagnesemia; E87.0 Hyperosmolality and hypernatremia; E86.0 Dehydration; E87.6 Hypokalemia; E83.39 Other disorders of phosphorus metabolism; E55.9 Vitamin D deficiency, unspecified; N18.3 Chronic kidney disease, stage 3 (moderate); N25.81 Secondary hyperparathyroidism of renal origin; E03.9 Hypothyroidism, unspecified; D64.9 Anemia, unspecified; J45.909 Unspecified asthma, uncomplicated; F17.200 Nicotine dependence, unspecified, uncomplicated; M54.6 Pain in thoracic spine; G82.20 Paraplegia, unspecified; N31.2 Flaccid neuropathic bladder, not elsewhere classified; G89.29 Other chronic pain; K59.00 Constipation, unspecified; F32.9 Major depressive disorder, single episode, unspecified; F41.9 Anxiety disorder, unspecified; Z86.14 Personal history of Methicillin resistant Staphylococcus aureus infection; Z86.718 Personal history of other venous thrombosis and embolism; Z88.0 Allergy status to penicillin; Z98.1 Arthrodesis status; I25.2 Old myocardial infarction
CPT/HCPCS: 36600; 70450; 71010; 74000; 80048; 80048 91; 80053; 80069; 80306 90; 81003; 82140; 82306; 82330; 82436; 82570; 82803; 83540; 83605; 83735; 83970; 84133; 84300; 84466; 84484; 85007; 85025; 85027; 85610; 85730; 86038; 87040; 87077; 87086; 87186; 87641; 87801; 99281; 99285; G0480; J0692; J0696; J0881; J1644; J2060; J2310; J2405; J3370; J3475; J3480; J7030; J7040; J7050; J7070; J7120

== ENCOUNTER 2017-04-13 22:58 | Emergency (ER) | payer OTHER ==
[~2017-04-13] VITALS: Ht 154.9 cm; Wt 65.9 kg
[~2017-04-13 22:58] MED LIST changes: +ENDOCET 5-3251 EACH PO; +OXYCODONE HCL5 MG PO; +TUMS500 MG PO
[2017-04-14 00:32] LABS: EOSINOPHIL (%) 0.9 % (0-5); EOSINOPHIL COUNT 0.1 K/uL (0-0.3); IMMATURE GRANULOCYTE (%) 0.3 % (0.0-0.7); INSTRUMENT ABS NEUTROPHIL CT 7.7 K/uL; LYMPHOCYTE COUNT 1.3 K/uL (1.0-2.8); MCH 30.4 PG (29.0-34.0); MCHC 31.1 G/DL (30.0-36.0); MEAN PLAT.VOLUME 10.4 uM^3 (9.5-12.4); MONOCYTE (%) 5.9 % (3-12); MONOCYTE COUNT 0.6 K/uL (0-0.8); NEUTROPHIL (%) 79.3 % (45-76); NEUTROPHIL COUNT 7.7 K/uL (1.8-6.4); RED BLOOD COUNT 3.59 M/uL (3.80-5.20); WHITE BLOOD COUNT 9.7 K/uL (4.1-10.2)
[2017-04-14 00:37] LABS: MCV 97.5 FL (83-99); PLATELET COUNT 207 K/uL (156-360)
[2017-04-14 00:43] LABS: CHLORIDE 111 mEq/L (99-109); POTASSIUM 4.9 mEq/L (3.7-5.4); SODIUM 139 mEq/L (136-147)
[2017-04-14 00:45] LABS: GLUCOSE 100 mg/dL (70-99)
[2017-04-14 00:47] LABS: ANION GAP 7 MEQ/L (2-14); TOTAL BILIRUBIN 0.3 mg/dL (0.0-1.0)
[2017-04-14 00:49] LABS: ALKALINE PHOSPHATASE 84 IU/L (3-129); GFR ESTIMATE (CALCULATED) 44 mL/min/
[2017-04-14 00:50] LABS: UREA NITROGEN (BUN) 16 mg/dL (9-23)
[2017-04-14 00:52] LABS: LIPASE 22 U/L (1.0-51.0)
[2017-04-14 01:42] LABS: SERUM ETHYL ALCOHOL < 10 mg/dL
[2017-04-14 01:45] LABS: SALICYLATE < 5.0 MG/DL (15-30)
[2017-04-14 02:06] LABS: ADD MIUA? YES; BILIRUBIN NEGATIVE; BLOOD MODERATE; COLOR AMBER ((YELLOW)); GLUCOSE (STRIP) NEGATIVE; KETONES NEGATIVE; LEUKOCYTES LARGE; NITRITE POSITIVE; PROTEIN (STRIP) 100; UROBILINOGEN 0.2 MG/DL (0.2-1.0)
[2017-04-14 02:17] LABS: ADD MEDTOX COMMENT Y; AMPHETAMINE NEGATIVE (500 ng/mL); BARBITURATES NEGATIVE (200 ng/mL); BENZODIAZEPINES NEGATIVE (150 ng/mL); COCAINE NEGATIVE (150 ng/mL); INTERNAL CONTROLS VALID? YES; METHADONE NEGATIVE (200 ng/mL); METHAMPHETAMINE NEGATIVE (500 ng/mL); OPIATES (MORPHINE) NEGATIVE (100 ng/mL); OXYCODONE PRESUMPTIVE POSITIVE (100 ng/mL); PHENCYCLIDINE NEGATIVE (25 ng/mL); PROPOXYPHENE NEGATIVE (300 ng/mL); THC CANNABINOIDS PRESUMPTIVE POSITIVE (50 ng/mL); TRICYCLIC ANTIDEPRESSANTS NEGATIVE (300 ng/mL)
[2017-04-14 02:28] LABS: BACTERIA 3+ /HPF; WHITE BLOOD CELLS TNTC /HPF (0-5)
[2017-04-14 02:29] LABS: URINE COMMENT FIELD OBSCURED BY
[2017-04-14 03:34] VITALS: BP 120/109
== END 2017-04-14 03:35 | disposition home or self-care (01) ==
LOC: EME 22:58 → EXP 22:58
PROVIDERS: Physician Assistant
DX: T42.8X1A Poisoning by antiparkinsonism drugs and other central muscle-tone depressants, accidental (unintentional), initial encounter (principal); G82.20 Paraplegia, unspecified; J45.909 Unspecified asthma, uncomplicated; F32.9 Major depressive disorder, single episode, unspecified; I25.2 Old myocardial infarction; F41.9 Anxiety disorder, unspecified; Z87.440 Personal history of urinary (tract) infections; Z87.891 Personal history of nicotine dependence; Z88.0 Allergy status to penicillin
CPT/HCPCS: 71020; 80053; 81003; 83605; 83690; 84999; 85025; 99281; 99285; G0480; J7030

== ENCOUNTER 2017-09-26 13:16 | Inpatient (IN) | payer OTHER ==
[2017-09-26] VITALS (9 sets, daily range): BP systolic 78–103; BP diastolic 30–62
[~2017-09-26] VITALS: Ht 154.9 cm; Wt 52.8 kg
[2017-09-26 13:58] LABS: BASOPHIL (%) 0.1 % (0-1); EOSINOPHIL (%) 0.2 % (0-5); EOSINOPHIL COUNT 0.1 K/uL (0-0.3); IMMATURE GRANULOCYTE (%) 2.2 % (0.0-0.7); LYMPHOCYTE (%) 4.3 % (15-42); LYMPHOCYTE COUNT 1.4 K/uL (1.0-2.8); MONOCYTE (%) 3.7 % (3-12); MONOCYTE COUNT 1.2 K/uL (0-0.8); NEUTROPHIL (%) 89.5 % (45-76); NEUTROPHIL COUNT 28.7 K/uL (1.8-6.4); PLATELET COUNT 225 K/uL (156-360)
[2017-09-26 14:01] LABS: HEMATOCRIT 28.6 % (36.0-46.0); HEMOGLOBIN 10.1 G/DL (11.9-15.5); MCH 30.3 PG (29.0-34.0); MCHC 35.3 G/DL (30.0-36.0); MCV 85.9 FL (83-99); NRBC (%) 0.6 /100 WBC (0-0); RBC DIS.WIDTH-CV 18.4 % (11.8-14.6); RBC DIS.WIDTH-SD 56.2 % (39-53); RED BLOOD COUNT 3.33 M/uL (3.80-5.20)
[2017-09-26 14:02] LABS: WHITE BLOOD COUNT 32.1 K/uL (4.1-10.2)
[2017-09-26 14:03] LABS: CHLORIDE 108 mEq/L (99-109); POTASSIUM 2.3 mEq/L (3.7-5.4); PTT 37.6 SEC (25-37); SODIUM 130 mEq/L (136-147)
[2017-09-26 14:04] LABS: MAGNESIUM 2.1 mg/dL (1.3-2.7)
[2017-09-26 14:06] LABS: GLUCOSE 122 mg/dL (70-99)
[2017-09-26 14:08] LABS: TOTAL BILIRUBIN 0.2 mg/dL (0.0-1.0)
[2017-09-26 14:09] LABS: ALKALINE PHOSPHATASE 116 IU/L (3-129); CREATININE 3.2 mg/dL (0.6-1.3); GFR ESTIMATE (CALCULATED) 18 mL/min/
[2017-09-26 14:11] LABS: AST (GOT) 8 IU/L (2-34)
[2017-09-26 14:12] LABS: ALT (GPT) 4 IU/L (3-49)
[2017-09-26 14:21] LABS: UREA NITROGEN (BUN) 147 mg/dL (9-23)
[2017-09-26] MEDS ORDERED: OXYCODONE-APAP1 EAC6 PO (14:27)
[2017-09-26] MEDS ORDERED: OXYCONTIN15 MG PO (14:28)
[2017-09-26] MEDS ORDERED: DEXTROAMP-AMPHE15 MG PO (14:29)
[2017-09-26] MEDS ORDERED: PROAIR HFA8.5 GM IH (14:30)
[2017-09-26] MEDS ORDERED: LEVOFLOXACIN250 MG PO (14:31)
[2017-09-26] MEDS ORDERED: RANITIDINE HCL300 MG PO (14:32)
[2017-09-26] MEDS ORDERED: K-DUR20 MEQ PO (14:34)
[2017-09-26 15:30] LABS: THYROTROPIN (TSH) 13.6 MIU/L (0.4-5.5)
[2017-09-26 16:25] LABS: BASE EXCESS -21.8 mEq/L (-3 to +3); BICARBONATE 7.3 mEq/L (22-26); CARBOXY HGB 1.5 % (0-5); COMMENTS - BLOOD GASES A+C+; FI02 21 %; METHEMOGLOBIN 3.9 % (0-1.5); PCO2 27 mm Hg (35-45); PO2 105 mm Hg (80-100); SITE RR; pH 7.04 (7.35-7.45)
[2017-09-26 17:26] LABS: APPEARANCE TURBID ((CLEAR)); BILIRUBIN NEGATIVE; BLOOD SMALL; GLUCOSE (STRIP) NEGATIVE; KETONES NEGATIVE; LEUKOCYTES MODERATE; NITRITE NEGATIVE; PROTEIN (STRIP) 100; UROBILINOGEN 0.2 MG/DL (0.2-1.0)
[2017-09-26 17:28] LABS: COLOR YELLOW ((YELLOW))
[2017-09-26 17:43] LABS: HIGH-SENS C-REACTIVE PROTEIN 4.02 MG/DL (0.02-0.20)
[2017-09-26 18:17] LABS: UCUL ADDED? YES
[2017-09-26 20:45] LABS: INTACT PARATHYROID HORMONE 95 pg/mL (10-69)
[2017-09-26 20:54] LABS: CHLORIDE 119 MEQ/L (99-109); MAGNESIUM 1.7 mg/dl (1.3-2.7); PHOSPHORUS 3.5 mg/dL (2.5-4.9); SODIUM 135 MEQ/L (136-147)
[2017-09-26 20:56] LABS: CREATININE 2.5 MG/DL (0.6-1.3); GFR ESTIMATE (CALCULATED) 24 mL/min/; GLUCOSE 73 mg/dL (70-99); POTASSIUM 4.1 MEQ/L (3.7-5.4)
[2017-09-26 20:57] LABS: UREA NITROGEN (BUN) 112 mg/dL (9-23)
[2017-09-26 22:35] LABS: BENZODIAZEPINES, URINE SCREEN Negative (200 ng/mL)
[2017-09-26 22:36] LABS: UR CREATININE CONCENTRATION 4.4 MG/DL
[2017-09-26 23:03] LABS: URINE OSMOLALITY 275 MOSM/KG (300-1100)
[2017-09-27] VITALS (29 sets, daily range): BP systolic 71–129; BP diastolic 35–107
[2017-09-27 06:00] LABS: ALBUMIN 2.5 G/DL (3.2-4.8); CHLORIDE 117 MEQ/L (99-109); CREATININE 2.4 MG/DL (0.6-1.3); GFR ESTIMATE (CALCULATED) 25 mL/min/; PHOSPHORUS 2.3 mg/dL (2.5-4.9); SODIUM 136 MEQ/L (136-147)
[2017-09-27 06:04] LABS: GLUCOSE 136 mg/dL (70-99); UREA NITROGEN (BUN) 105 mg/dL (9-23)
[2017-09-27 12:48] LABS: CARBON DIOXIDE (BICARBONATE) 12.3 MEQ/L (20-31)
[2017-09-27 13:40] LABS: ALBUMIN 2.3 G/DL (3.2-4.8); CHLORIDE 116 MEQ/L (99-109); CREATININE 2.2 MG/DL (0.6-1.3); GFR ESTIMATE (CALCULATED) 28 mL/min/; MAGNESIUM 1.7 mg/dl (1.3-2.7); POTASSIUM 3.6 MEQ/L (3.7-5.4); SODIUM 141 MEQ/L (136-147); UREA NITROGEN (BUN) 89 mg/dL (9-23)
[2017-09-27 13:41] LABS: GLUCOSE 210 mg/dL (70-99); PHOSPHORUS 1.2 mg/dL (2.5-4.9)
[2017-09-28] VITALS (20 sets, daily range): BP systolic 85–132; BP diastolic 55–86
[2017-09-28 06:18] LABS: ALBUMIN 2.6 G/DL (3.2-4.8); CHLORIDE 117 MEQ/L (99-109); GFR ESTIMATE (CALCULATED) 31 mL/min/; GLUCOSE 75 mg/dL (70-99); PHOSPHORUS 2.1 mg/dL (2.5-4.9); POTASSIUM 3.8 MEQ/L (3.7-5.4); SODIUM 148 MEQ/L (136-147); UREA NITROGEN (BUN) 90 mg/dL (9-23)
[2017-09-29 08:38] VITALS: BP 136/94
[2017-09-29 09:19] LABS: HEMATOCRIT 21.8 % (36.0-46.0); MCH 29.9 PG (29.0-34.0); MCHC 35.8 G/DL (30.0-36.0); MCV 83.5 FL (83-99); NRBC (%) 0.3 /100 WBC (0-0); RBC DIS.WIDTH-CV 18.4 % (11.8-14.6); RBC DIS.WIDTH-SD 50.9 % (39-53)
[2017-09-29 09:21] LABS: HEMOGLOBIN 7.8 G/DL (11.9-15.5); RED BLOOD COUNT 2.61 M/uL (3.80-5.20); WHITE BLOOD COUNT 40.8 K/uL (4.1-10.2)
[2017-09-29 09:44] LABS: PLAT.SUFFICIENCY DECREASED
[2017-09-29 09:46] LABS: PLATELET COUNT 77 K/uL (156-360)
[2017-09-29 09:48] LABS: CHLORIDE 113 MEQ/L (99-109); CREATININE 1.6 MG/DL (0.6-1.3); GFR ESTIMATE (CALCULATED) 41 mL/min/; GLUCOSE 82 mg/dL (70-99); SODIUM 146 MEQ/L (136-147); UREA NITROGEN (BUN) 63 mg/dL (9-23)
[2017-09-29 09:50] LABS: MAGNESIUM 1.5 mg/dl (1.3-2.7)
[2017-09-29 09:56] LABS: BASE EXCESS -0.8 mEq/L (-3 to +3); BICARBONATE 22.8 mEq/L (22-26); COMMENTS - BLOOD GASES A+C+; DEVICE HFNC; METHEMOGLOBIN 3.6 % (0-1.5); O2 FLOW 10 L/MIN; PCO2 32 mm Hg (35-45); PO2 51 mm Hg (80-100); SITE RR; pH 7.46 (7.35-7.45)
[2017-09-29 11:25] LABS: LACTATE DEHYDROGENASE 216 IU/L (20-246); TOTAL BILIRUBIN 0.6 MG/DL (0.0-1.0)
[2017-09-29 12:39] LABS: PLATELET COUNT 82 K/uL (156-360)
[2017-09-29 12:46] LABS: HEMATOCRIT 20.3 % (36.0-46.0); HEMOGLOBIN 7.2 G/DL (11.9-15.5); MCH 29.8 PG (29.0-34.0); MCHC 35.5 G/DL (30.0-36.0); MCV 83.9 FL (83-99); NRBC (%) 0.3 /100 WBC (0-0); RBC DIS.WIDTH-CV 18.1 % (11.8-14.6); RBC DIS.WIDTH-SD 49.9 % (39-53); RED BLOOD COUNT 2.42 M/uL (3.80-5.20)
[2017-09-29 12:51] LABS: WHITE BLOOD COUNT 38.9 K/uL (4.1-10.2)
[2017-09-29 13:02] VITALS: BP 129/79
[2017-09-29 14:02] LABS: ANISOCYTOSIS 2+; BASOPH.STIPPLING 1+; EOSINOPHIL ABS CT 0; HYPOCHROMASIA 1+; LYMPHOCYTES 1.3 % (15.0-45.0); MACROCYTES 2+; MONOCYTES 0.9 % (0-9.0); PLAT.SUFFICIENCY DECREASED; POLYCHROMASIA 1+; SEG.NEUTROPHILS 97.8 % (46.0-76.0)
[2017-09-29 16:23] VITALS: BP 124/83
[2017-09-29 19:05] LABS: HEMATOCRIT 23.1 % (36.0-46.0); MCV 85.9 FL (83-99)
[2017-09-29 19:30] VITALS: BP 147/74
[2017-09-29 23:00] VITALS: BP 132/88; BP 137/78
[2017-09-30 03:43] LABS: C DIFF TOXIN POSITIVE (NEGATIVE)
[2017-09-30 04:00] VITALS: BP 121/76
[2017-09-30 06:36] LABS: HEMATOCRIT 25.4 % (36.0-46.0); HEMOGLOBIN 8.6 G/DL (11.9-15.5); MCH 29.9 PG (29.0-34.0); MCHC 33.9 G/DL (30.0-36.0); MCV 88.2 FL (83-99); NRBC (%) 0.3 /100 WBC (0-0); RBC DIS.WIDTH-CV 19.6 % (11.8-14.6); RBC DIS.WIDTH-SD 57.5 % (39-53); RED BLOOD COUNT 2.88 M/uL (3.80-5.20)
[2017-09-30 06:49] LABS: WHITE BLOOD COUNT 42.5 K/uL (4.1-10.2)
[2017-09-30 07:07] LABS: ALBUMIN 2.3 G/DL (3.2-4.8); ALKALINE PHOSPHATASE 95 IU/L (3-129); ALT (GPT) 10 IU/L (3-49); AST (GOT) 17 IU/L (2-34); CHLORIDE 112 MEQ/L (99-109); CREATININE 1.6 MG/DL (0.6-1.3); GFR ESTIMATE (CALCULATED) 41 mL/min/; POTASSIUM 3.7 MEQ/L (3.7-5.4); SODIUM 147 MEQ/L (136-147); TOTAL BILIRUBIN 0.6 MG/DL (0.0-1.0); TOTAL PROTEIN 4.9 G/DL (6.4-8.3); UREA NITROGEN (BUN) 49 mg/dL (9-23)
[2017-09-30 07:09] LABS: GLUCOSE 104 mg/dL (70-99)
[2017-09-30 07:30] LABS: PLAT.SUFFICIENCY DECREASED; PLATELET COUNT 79 K/uL (156-360)
[2017-09-30 08:46] LABS: MAGNESIUM 1.4 mg/dl (1.3-2.7)
[2017-09-30 11:16] LABS: QUANTITATIVE HCG < 4.0 MIU/ML
[2017-09-30 13:10] LABS: SCHISTOCYTES RARE; TARGET CELLS 2+
[2017-09-30 14:44] LABS: BASE EXCESS 4.7 mEq/L (-3 to +3); BICARBONATE 28.1 mEq/L (22-26); CARBOXY HGB 1.4 % (0-5); METHEMOGLOBIN 3.9 % (0-1.5); PCO2 36 mm Hg (35-45); PO2 58 mm Hg (80-100); SITE RR
[2017-09-30 14:45] LABS: COMMENTS - BLOOD GASES A+C+; DEVICE HFNC; O2 FLOW 10 L/MIN; TOTAL RESP RATE 23 resp/min
[2017-09-30 14:55] VITALS: BP 138/83
[2017-09-30 23:33] VITALS: BP 117/72
[2017-10-01] VITALS (11 sets, daily range): BP systolic 98–131; BP diastolic 59–80
[2017-10-01 06:29] LABS: BASOPHIL (%) 0.1 % (0-1); EOSINOPHIL (%) 0.1 % (0-5); HEMATOCRIT 19.6 % (36.0-46.0); LYMPHOCYTE (%) 5.9 % (15-42); LYMPHOCYTE COUNT 1.7 K/uL (1.0-2.8); MCH 29.8 PG (29.0-34.0); MCHC 33.2 G/DL (30.0-36.0); MCV 89.9 FL (83-99); MONOCYTE (%) 3.2 % (3-12); MONOCYTE COUNT 0.9 K/uL (0-0.8); NEUTROPHIL (%) 89.7 % (45-76); NEUTROPHIL COUNT 25.7 K/uL (1.8-6.4); NRBC (%) 0.3 /100 WBC (0-0); RBC DIS.WIDTH-CV 19.1 % (11.8-14.6); RBC DIS.WIDTH-SD 56.1 % (39-53); WHITE BLOOD COUNT 28.6 K/uL (4.1-10.2)
[2017-10-01 06:38] LABS: HEMOGLOBIN 6.5 G/DL (11.9-15.5); RED BLOOD COUNT 2.18 M/uL (3.80-5.20)
[2017-10-01 07:00] LABS: ALBUMIN 1.9 G/DL (3.2-4.8); ALKALINE PHOSPHATASE 72 IU/L (3-129); ALT (GPT) 7 IU/L (3-49); AST (GOT) 13 IU/L (2-34); CHLORIDE 117 MEQ/L (99-109); CREATININE 1.6 MG/DL (0.6-1.3); GFR ESTIMATE (CALCULATED) 41 mL/min/; GLUCOSE 93 mg/dL (70-99); POTASSIUM 3.2 MEQ/L (3.7-5.4); UREA NITROGEN (BUN) 52 mg/dL (9-23)
[2017-10-01 07:06] LABS: SODIUM 155 MEQ/L (136-147); TOTAL BILIRUBIN 0.4 MG/DL (0.0-1.0)
[2017-10-01 07:34] LABS: HEMATOCRIT 19.2 % (36.0-46.0); MCV 90.1 FL (83-99)
[2017-10-01 07:35] LABS: HEMOGLOBIN 6.5 G/DL (11.9-15.5)
[2017-10-01 07:56] LABS: PLATELET COUNT 62 K/uL (156-360)
[2017-10-01 08:23] LABS: PHOSPHORUS 2.6 mg/dL (2.5-4.9); URIC ACID 5.2 mg/dL (3.1-9.2)
[2017-10-01 09:01] LABS: STOOL OCCULT BLD 1ST SPECIMEN POSITIVE
[2017-10-01 16:49] LABS: CHLORIDE 110 MEQ/L (99-109); CREATININE 1.5 MG/DL (0.6-1.3); GFR ESTIMATE (CALCULATED) 44 mL/min/; GLUCOSE 79 mg/dL (70-99); POTASSIUM 3.3 MEQ/L (3.7-5.4); UREA NITROGEN (BUN) 50 mg/dL (9-23)
[2017-10-01 16:56] LABS: SODIUM 145 MEQ/L (136-147)
[2017-10-01 21:35] LABS: Heparin Induced Plt Ab Negative (Negative)
[2017-10-01 23:47] LABS: BASE EXCESS 0 mEq/L (-3 to +3); BICARBONATE 24.8 mEq/L (22-26); CARBOXY HGB 2.4 % (0-5); COMMENTS - BLOOD GASES C+; DEVICE NRBM; METHEMOGLOBIN 2.7 % (0-1.5); PCO2 40 mm Hg (35-45); PO2 53 mm Hg (80-100); SITE RR; TOTAL RESP RATE 12 resp/min
[2017-10-02] VITALS (7 sets, daily range): BP systolic 103–140; BP diastolic 64–85
[2017-10-02 07:03] LABS: HEMATOCRIT 34.5 % (36.0-46.0); MCH 30.3 PG (29.0-34.0); MCHC 34.2 G/DL (30.0-36.0); MCV 88.7 FL (83-99); NRBC (%) 0.2 /100 WBC (0-0); RBC DIS.WIDTH-CV 18.5 % (11.8-14.6); RBC DIS.WIDTH-SD 54.4 % (39-53)
[2017-10-02 07:07] LABS: HEMOGLOBIN 11.8 G/DL (11.9-15.5); RED BLOOD COUNT 3.89 M/uL (3.80-5.20); WHITE BLOOD COUNT 34.8 K/uL (4.1-10.2)
[2017-10-02 07:23] LABS: ALBUMIN 2.3 G/DL (3.2-4.8); CHLORIDE 111 MEQ/L (99-109); CREATININE 1.5 MG/DL (0.6-1.3); GFR ESTIMATE (CALCULATED) 44 mL/min/; GLUCOSE 64 mg/dL (70-99); PHOSPHORUS 2.9 mg/dL (2.5-4.9); POTASSIUM 3.5 MEQ/L (3.7-5.4); SODIUM 149 MEQ/L (136-147); UREA NITROGEN (BUN) 52 mg/dL (9-23); URIC ACID 6.2 mg/dL (3.1-9.2)
[2017-10-02 07:25] LABS: IMM.PLATELET FRACTION 8.9 (1-7); PLAT.SUFFICIENCY VERY DECREASED; PLATELET COUNT 46 K/uL (156-360)
[2017-10-02 08:53] LABS: UFH SRA Result Negative (Negative)
[2017-10-02 23:08] LABS: BENZODIAZEPINES, URINE SCREEN Negative (200 ng/mL)
[2017-10-03] VITALS: BP 137/82
[2017-10-03 04:00] VITALS: BP 122/85
[2017-10-03 06:54] LABS: HEMATOCRIT 32.3 % (36.0-46.0); HEMOGLOBIN 10.8 G/DL (11.9-15.5); MCH 29.3 PG (29.0-34.0); MCHC 33.4 G/DL (30.0-36.0); MCV 87.8 FL (83-99); NRBC (%) 0.1 /100 WBC (0-0); RBC DIS.WIDTH-CV 18.1 % (11.8-14.6); RBC DIS.WIDTH-SD 54.2 % (39-53); RED BLOOD COUNT 3.68 M/uL (3.80-5.20)
[2017-10-03 07:03] LABS: WHITE BLOOD COUNT 31.2 K/uL (4.1-10.2)
[2017-10-03 07:04] LABS: ALBUMIN 2.2 G/DL (3.2-4.8); CHLORIDE 111 MEQ/L (99-109); CK-MB 3.4 ng/mL (0.0-4.9); CREATINE KINASE 101 IU/L (1-294); CREATININE 1.3 MG/DL (0.6-1.3); GFR ESTIMATE (CALCULATED) 51 mL/min/; POTASSIUM 3.4 MEQ/L (3.7-5.4); TOTAL CK 101 IU/L (1-294); UREA NITROGEN (BUN) 45 mg/dL (9-23)
[2017-10-03 07:06] LABS: GLUCOSE 115 mg/dL (70-99); PHOSPHORUS 1.5 mg/dL (2.5-4.9); SODIUM 141 MEQ/L (136-147)
[2017-10-03 07:11] LABS: IMM.PLATELET FRACTION 9.3 (1-7); PLAT.SUFFICIENCY DECREASED; PLATELET COUNT 47 K/uL (156-360)
[2017-10-03 07:33] LABS: CKMB RELATIVE INDEX 3.4 (0.0-3.9)
[2017-10-03 07:48] VITALS: BP 110/71
[2017-10-03 15:26] VITALS: BP 118/70
[2017-10-03 18:51] LABS: MAGNESIUM 1.4 mg/dl (1.3-2.7)
[2017-10-03 19:55] VITALS: BP 127/91
[2017-10-03 23:57] VITALS: BP 120/88
[2017-10-04 04:17] VITALS: BP 117/71
[2017-10-04 07:07] LABS: ALBUMIN 2.2 G/DL (3.2-4.8); CHLORIDE 113 MEQ/L (99-109); CREATININE 1.2 MG/DL (0.6-1.3); GFR ESTIMATE (CALCULATED) 56 mL/min/; MAGNESIUM 1.4 mg/dl (1.3-2.7); SODIUM 142 MEQ/L (136-147); UREA NITROGEN (BUN) 35 mg/dL (9-23)
[2017-10-04 07:08] LABS: GLUCOSE 75 mg/dL (70-99); PHOSPHORUS 3.5 mg/dL (2.5-4.9)
[2017-10-04 07:39] VITALS: BP 122/72
[2017-10-04 09:42] LABS: THYROTROPIN (TSH) 5.9 MIU/L (0.4-5.5)
[2017-10-04 11:10] VITALS: BP 120/82
[2017-10-04 16:22] VITALS: BP 120/78
[2017-10-04 20:07] VITALS: BP 118/65
[2017-10-04 23:58] VITALS: BP 118/67
[2017-10-05 04:13] VITALS: BP 110/64
[2017-10-05 06:55] LABS: BASOPHIL (%) 0.2 % (0-1); EOSINOPHIL (%) 1.1 % (0-5); EOSINOPHIL COUNT 0.2 K/uL (0-0.3); HEMATOCRIT 30.2 % (36.0-46.0); HEMOGLOBIN 9.7 G/DL (11.9-15.5); IMMATURE GRANULOCYTE (%) 0.9 % (0.0-0.7); LYMPHOCYTE (%) 8.6 % (15-42); LYMPHOCYTE COUNT 1.7 K/uL (1.0-2.8); MCH 29.4 PG (29.0-34.0); MCHC 32.1 G/DL (30.0-36.0); MCV 91.5 FL (83-99); MONOCYTE (%) 7.6 % (3-12); MONOCYTE COUNT 1.5 K/uL (0-0.8); NEUTROPHIL (%) 81.6 % (45-76); NEUTROPHIL COUNT 15.6 K/uL (1.8-6.4); RBC DIS.WIDTH-CV 17.9 % (11.8-14.6); RBC DIS.WIDTH-SD 57.1 % (39-53); WHITE BLOOD COUNT 19.1 K/uL (4.1-10.2)
[2017-10-05 07:06] LABS: PLATELET COUNT 70 K/uL (156-360)
[2017-10-05 07:10] VITALS: BP 183/67
[2017-10-05 07:13] LABS: ALBUMIN 2.1 G/DL (3.2-4.8); CHLORIDE 115 MEQ/L (99-109); CREATININE 1.2 MG/DL (0.6-1.3); GFR ESTIMATE (CALCULATED) 56 mL/min/; GLUCOSE 85 mg/dL (70-99); MAGNESIUM 1.3 mg/dl (1.3-2.7); PHOSPHORUS 2.7 mg/dL (2.5-4.9); POTASSIUM 3.4 MEQ/L (3.7-5.4); SODIUM 144 MEQ/L (136-147); UREA NITROGEN (BUN) 28 mg/dL (9-23)
[2017-10-05 10:07] VITALS: BP 122/72
[2017-10-05 16:39] VITALS: BP 128/78
[2017-10-05 19:54] VITALS: BP 117/64
[2017-10-06] VITALS (25 sets, daily range): BP systolic 74–189; BP diastolic 41–114
[2017-10-06 00:42] LABS: BASE EXCESS -16.7 mEq/L (-3 to +3); CARBOXY HGB 1.9 % (0-5); METHEMOGLOBIN 2.2 % (0-1.5); pH 6.92 (7.35-7.45)
[2017-10-06 00:43] LABS: BICARBONATE 16.6 mEq/L (22-26); COMMENTS - BLOOD GASES A+C+; DEVICE NRBM; FI02 100 %; O2 FLOW 15 L/MIN; PCO2 81 mm Hg (35-45); PO2 85 mm Hg (80-100); SITE LR; TOTAL RESP RATE 26 resp/min
[2017-10-06 01:00] LABS: ALBUMIN 2.9 g/dL (3.2-4.8); CHLORIDE 117 mEq/L (99-109); POTASSIUM 3.6 mEq/L (3.7-5.4); SODIUM 149 mEq/L (136-147)
[2017-10-06 01:03] LABS: GLUCOSE 99 mg/dL (70-99); TOTAL PROTEIN 5.7 g/dL (6.4-8.3)
[2017-10-06 01:05] LABS: TOTAL BILIRUBIN 0.5 mg/dL (0.0-1.0)
[2017-10-06 01:06] LABS: ALKALINE PHOSPHATASE 96 IU/L (3-129); CREATININE 1.3 mg/dL (0.6-1.3); GFR ESTIMATE (CALCULATED) 51 mL/min/
[2017-10-06 01:07] LABS: UREA NITROGEN (BUN) 27 mg/dL (9-23)
[2017-10-06 01:08] LABS: AST (GOT) 14 IU/L (2-34)
[2017-10-06 01:09] LABS: ALT (GPT) 9 IU/L (3-49)
[2017-10-06 02:26] LABS: TRIGLYCERIDES 83 MG/DL (Normal: <150)
[2017-10-06 02:27] LABS: PHOSPHORUS 4.5 mg/dL (2.5-4.9)
[2017-10-06 02:59] LABS: BASE EXCESS -6.2 mEq/L (-3 to +3); BICARBONATE 18.9 mEq/L (22-26); METHEMOGLOBIN 3.1 % (0-1.5)
[2017-10-06 03:01] LABS: COMMENTS - BLOOD GASES C+; DEVICE VENT; FI02 100 %; MECHANICAL RATE 24 resp/min; MODE ACVC; PCO2 35 mm Hg (35-45); PEEP 5 CM/H20; PO2 401 mm Hg (80-100); SITE RR; TIDAL VOLUME 400 ML; TOTAL RESP RATE 24 resp/min; pH 7.34 (7.35-7.45)
[2017-10-06 04:29] LABS: ALBUMIN 2.5 g/dL (3.2-4.8); CHLORIDE 117 mEq/L (99-109); POTASSIUM 3.1 mEq/L (3.7-5.4); SODIUM 150 mEq/L (136-147)
[2017-10-06 04:35] LABS: CREATININE 1.4 mg/dL (0.6-1.3); GFR ESTIMATE (CALCULATED) 47 mL/min/; PHOSPHORUS 2.7 mg/dL (2.5-4.9)
[2017-10-06 04:36] LABS: UREA NITROGEN (BUN) 26 mg/dL (9-23)
[2017-10-06 04:39] LABS: GLUCOSE 67 mg/dL (70-99)
[2017-10-06 05:35] LABS: BENZODIAZEPINES, URINE SCREEN Negative (200 ng/mL)
[2017-10-06 07:29] LABS: PROLACTIN 29.5 NG/ML
[2017-10-06 12:55] LABS: TYPE OF FLUID THORACENTESIS
[2017-10-06 13:26] LABS: APPEARANCE SL. HAZY-COLORLESS; BODY FLUID EOSINOPHILS 0 % (0-25); BODY FLUID RBC'S 1000 /MM^3 (0-100); BODY FLUID WBC'S 605 /MM^3 (0-500); MONONUCLEAR WBC'S 81 %; POLYNUCLEAR WBC'S 19 % (0-25)
[2017-10-07] VITALS (25 sets, daily range): BP systolic 76–117; BP diastolic 44–84
[2017-10-07 06:35] LABS: POTASSIUM 2.5 MEQ/L (3.7-5.4)
[2017-10-07 06:49] LABS: ALBUMIN 1.8 G/DL (3.2-4.8); CHLORIDE 121 MEQ/L (99-109); CREATININE 1.2 MG/DL (0.6-1.3); GFR ESTIMATE (CALCULATED) 56 mL/min/; SODIUM 145 MEQ/L (136-147); UREA NITROGEN (BUN) 20 mg/dL (9-23)
[2017-10-07 06:51] LABS: GLUCOSE 90 mg/dL (70-99); MAGNESIUM 1.6 mg/dl (1.3-2.7); PHOSPHORUS 2.4 mg/dL (2.5-4.9)
[2017-10-07 20:13] LABS: HEMATOCRIT 28.9 % (36.0-46.0); HEMOGLOBIN 9.2 G/DL (11.9-15.5); MCH 29.8 PG (29.0-34.0); MCHC 31.8 G/DL (30.0-36.0); MCV 93.5 FL (83-99); RBC DIS.WIDTH-CV 18.8 % (11.8-14.6); RED BLOOD COUNT 3.09 M/uL (3.80-5.20)
[2017-10-07 20:34] LABS: PLATELET COUNT 168 K/uL (156-360)
[2017-10-07 22:16] LABS: INTER. NORMALIZED RATIO 1.3
[2017-10-08] VITALS (21 sets, daily range): BP systolic 82–113; BP diastolic 46–77
[2017-10-08 05:45] LABS: ALBUMIN 2.2 g/dL (3.2-4.8); CHLORIDE 125 mEq/L (99-109); SODIUM 146 mEq/L (136-147)
[2017-10-08 05:47] LABS: GLUCOSE 80 mg/dL (70-99); POTASSIUM 5.2 mEq/L (3.7-5.4)
[2017-10-08 05:51] LABS: CREATININE 1.2 mg/dL (0.6-1.3); GFR ESTIMATE (CALCULATED) 56 mL/min/; PHOSPHORUS 3.1 mg/dL (2.5-4.9)
[2017-10-08 05:52] LABS: UREA NITROGEN (BUN) 14 mg/dL (9-23)
[2017-10-08 12:11] LABS: INTER. NORMALIZED RATIO 1.2
[2017-10-08 12:17] LABS: PTT 40.1 SEC (25-37)
[2017-10-08 12:35] LABS: FIBRINOGEN 398 mg/dL (150-450)
[2017-10-08 12:45] LABS: BASOPHIL (%) 0.2 % (0-1); EOSINOPHIL COUNT 0.1 K/uL (0-0.3); HEMATOCRIT 27.3 % (36.0-46.0); HEMOGLOBIN 8.6 G/DL (11.9-15.5); IMMATURE GRANULOCYTE (%) 0.7 % (0.0-0.7); LYMPHOCYTE (%) 11.9 % (15-42); LYMPHOCYTE COUNT 1.4 K/uL (1.0-2.8); MCH 30.4 PG (29.0-34.0); MCHC 31.5 G/DL (30.0-36.0); MCV 96.5 FL (83-99); MONOCYTE (%) 7.3 % (3-12); MONOCYTE COUNT 0.9 K/uL (0-0.8); NEUTROPHIL (%) 78.9 % (45-76); NEUTROPHIL COUNT 9.5 K/uL (1.8-6.4); NRBC (%) 0.2 /100 WBC (0-0); PLATELET COUNT 169 K/uL (156-360); RBC DIS.WIDTH-SD 62.8 % (39-53); RED BLOOD COUNT 2.83 M/uL (3.80-5.20); WHITE BLOOD COUNT 12.1 K/uL (4.1-10.2)
[2017-10-09] VITALS (23 sets, daily range): BP systolic 87–119; BP diastolic 58–85
[2017-10-09 02:20] LABS: ALBUMIN 2.2 g/dL (3.2-4.8); CHLORIDE 123 mEq/L (99-109); POTASSIUM 4.6 mEq/L (3.7-5.4); SODIUM 144 mEq/L (136-147)
[2017-10-09 02:21] LABS: MAGNESIUM 1.7 mg/dL (1.3-2.7)
[2017-10-09 02:25] LABS: GLUCOSE 101 mg/dL (70-99)
[2017-10-09 02:26] LABS: GFR ESTIMATE (CALCULATED) > 59 mL/min/; PHOSPHORUS 3.5 mg/dL (2.5-4.9)
[2017-10-09 02:27] LABS: UREA NITROGEN (BUN) 13 mg/dL (9-23)
[2017-10-09 11:49] LABS: BASOPHIL (%) 0.2 % (0-1); EOSINOPHIL (%) 1.2 % (0-5); EOSINOPHIL COUNT 0.2 K/uL (0-0.3); HEMATOCRIT 25.8 % (36.0-46.0); HEMOGLOBIN 8.2 G/DL (11.9-15.5); IMMATURE GRANULOCYTE (%) 0.5 % (0.0-0.7); LYMPHOCYTE (%) 10.2 % (15-42); LYMPHOCYTE COUNT 1.3 K/uL (1.0-2.8); MCH 30.7 PG (29.0-34.0); MCHC 31.8 G/DL (30.0-36.0); MCV 96.6 FL (83-99); MONOCYTE (%) 4.8 % (3-12); MONOCYTE COUNT 0.6 K/uL (0-0.8); NEUTROPHIL (%) 83.1 % (45-76); NEUTROPHIL COUNT 10.3 K/uL (1.8-6.4); PLATELET COUNT 194 K/uL (156-360); RBC DIS.WIDTH-SD 63.8 % (39-53); RED BLOOD COUNT 2.67 M/uL (3.80-5.20); WHITE BLOOD COUNT 12.5 K/uL (4.1-10.2)
[2017-10-09 11:58] LABS: INTER. NORMALIZED RATIO 1.1
[2017-10-09 12:04] LABS: FIBRINOGEN 454 mg/dL (150-450); PTT 35.3 SEC (25-37)
[2017-10-09 12:13] LABS: ALBUMIN 2.1 G/DL (3.2-4.8); ALKALINE PHOSPHATASE 50 IU/L (3-129); ALT (GPT) 5 IU/L (3-49); AST (GOT) 9 IU/L (2-34); CHLORIDE 123 MEQ/L (99-109); CREATININE 1.1 MG/DL (0.6-1.3); GFR ESTIMATE (CALCULATED) > 59 mL/min/; GLUCOSE 89 mg/dL (70-99); POTASSIUM 4.3 MEQ/L (3.7-5.4); SODIUM 143 MEQ/L (136-147); TOTAL BILIRUBIN 0.3 MG/DL (0.0-1.0); TOTAL PROTEIN 4.6 G/DL (6.4-8.3); UREA NITROGEN (BUN) 13 mg/dL (9-23)
[2017-10-09 12:15] LABS: PHOSPHORUS 3.6 mg/dL (2.5-4.9)
[2017-10-09 18:16] LABS: CSF PROTEIN 45 mg/dL (15-45)
[2017-10-09 18:22] LABS: GLUCOSE, CSF 63 mg/dL (40-80)
[2017-10-09 18:35] LABS: APPEARANCE CLEAR/COLORLESS; CSF TUBE NUMBER TUBE #4
[2017-10-09 18:41] LABS: RED CELL COUNT 71 /MM^3 (0-1); WHITE CELL COUNT 2 /MM^3 (0-5)
[2017-10-09 18:44] LABS: APPEARANCE (RECHECK) CLEAR/COLORLESS; CSF TUBE NUMBER (RECHECK) TUBE #1
[2017-10-09 18:50] LABS: RED CELL COUNT (RECHECK) 68 /MM^3 (0-1)
[2017-10-09 18:54] LABS: CSF EOSINOPHILS ND % (0-25); MONONUCLEAR WBC'S ND % (50-90); POLYNUCLEAR WBC'S ND % (0-3)
[2017-10-10] VITALS (21 sets, daily range): BP systolic 89–112; BP diastolic 50–68
[2017-10-10 00:35] LABS: BASE EXCESS -7.7 mEq/L (-3 to +3); BICARBONATE 16.3 mEq/L (22-26); CARBOXY HGB 1.3 % (0-5); METHEMOGLOBIN 2.3 % (0-1.5); pH 7.39 (7.35-7.45)
[2017-10-10 00:36] LABS: DEVICE 840; FI02 50 %; MECHANICAL RATE 20 resp/min; MODE AC; PCO2 27 mm Hg (35-45); PO2 52 mm Hg (80-100); SITE LR; TIDAL VOLUME 400 ML; TOTAL RESP RATE 23 resp/min
[2017-10-10 00:37] LABS: PEEP 5 CM/H20
[2017-10-10 00:58] LABS: HEMATOCRIT 24.8 % (36.0-46.0); MCV 94.7 FL (83-99)
[2017-10-10 07:30] LABS: BASOPHIL (%) 0.2 % (0-1); EOSINOPHIL (%) 1.3 % (0-5); EOSINOPHIL COUNT 0.2 K/uL (0-0.3); HEMATOCRIT 23.1 % (36.0-46.0); HEMOGLOBIN 7.1 G/DL (11.9-15.5); IMMATURE GRANULOCYTE (%) 0.7 % (0.0-0.7); LYMPHOCYTE (%) 11.6 % (15-42); LYMPHOCYTE COUNT 1.3 K/uL (1.0-2.8); MCH 29.7 PG (29.0-34.0); MCHC 30.7 G/DL (30.0-36.0); MCV 96.7 FL (83-99); MONOCYTE (%) 6.1 % (3-12); MONOCYTE COUNT 0.7 K/uL (0-0.8); NEUTROPHIL (%) 80.1 % (45-76); NEUTROPHIL COUNT 9.2 K/uL (1.8-6.4); PLATELET COUNT 183 K/uL (156-360); RBC DIS.WIDTH-CV 18.7 % (11.8-14.6); RBC DIS.WIDTH-SD 63.6 % (39-53); RED BLOOD COUNT 2.39 M/uL (3.80-5.20); WHITE BLOOD COUNT 11.5 K/uL (4.1-10.2)
[2017-10-10 08:02] LABS: ALBUMIN 1.9 G/DL (3.2-4.8); ALKALINE PHOSPHATASE 50 IU/L (3-129); ALT (GPT) 6 IU/L (3-49); AST (GOT) 7 IU/L (2-34); CHLORIDE 125 MEQ/L (99-109); CREATININE 1.1 MG/DL (0.6-1.3); GFR ESTIMATE (CALCULATED) > 59 mL/min/; GLUCOSE 89 mg/dL (70-99); MAGNESIUM 1.6 mg/dl (1.3-2.7); PHOSPHORUS 3.4 mg/dL (2.5-4.9); POTASSIUM 4.2 MEQ/L (3.7-5.4); SODIUM 147 MEQ/L (136-147); TOTAL BILIRUBIN 0.3 MG/DL (0.0-1.0); TOTAL PROTEIN 4.3 G/DL (6.4-8.3); UREA NITROGEN (BUN) 18 mg/dL (9-23)
[2017-10-11] VITALS (20 sets, daily range): BP systolic 93–135; BP diastolic 54–91
[2017-10-11 00:39] LABS: HSV CSF Spec Source CSF (())
[2017-10-11 03:19] LABS: ALBUMIN 2.2 g/dL (3.2-4.8); CHLORIDE 124 mEq/L (99-109); SODIUM 148 mEq/L (136-147)
[2017-10-11 03:20] LABS: MAGNESIUM 1.9 mg/dL (1.3-2.7)
[2017-10-11 03:21] LABS: GLUCOSE 84 mg/dL (70-99)
[2017-10-11 03:25] LABS: CREATININE 1.1 mg/dL (0.6-1.3); GFR ESTIMATE (CALCULATED) > 59 mL/min/; PHOSPHORUS 3.3 mg/dL (2.5-4.9)
[2017-10-11 03:26] LABS: UREA NITROGEN (BUN) 19 mg/dL (9-23)
[2017-10-11 03:44] LABS: BASOPHIL (%) 0.2 % (0-1); EOSINOPHIL (%) 0.6 % (0-5); EOSINOPHIL COUNT 0.1 K/uL (0-0.3); HEMATOCRIT 23.6 % (36.0-46.0); HEMOGLOBIN 7.4 G/DL (11.9-15.5); IMMATURE GRANULOCYTE (%) 0.6 % (0.0-0.7); LYMPHOCYTE COUNT 1.9 K/uL (1.0-2.8); MCH 30.2 PG (29.0-34.0); MCHC 31.4 G/DL (30.0-36.0); MCV 96.3 FL (83-99); MONOCYTE (%) 6.1 % (3-12); MONOCYTE COUNT 1.1 K/uL (0-0.8); NEUTROPHIL (%) 82.5 % (45-76); NEUTROPHIL COUNT 15.4 K/uL (1.8-6.4); PLATELET COUNT 217 K/uL (156-360); RBC DIS.WIDTH-CV 18.9 % (11.8-14.6); RBC DIS.WIDTH-SD 64.2 % (39-53); RED BLOOD COUNT 2.45 M/uL (3.80-5.20); WHITE BLOOD COUNT 18.7 K/uL (4.1-10.2)
[2017-10-11 03:48] LABS: TOTAL PROTEIN 5.1 g/dL (6.4-8.3)
[2017-10-11 03:50] LABS: TOTAL BILIRUBIN 0.4 mg/dL (0.0-1.0)
[2017-10-11 03:53] LABS: AST (GOT) 10 IU/L (2-34)
[2017-10-11 03:54] LABS: ALT (GPT) 6 IU/L (3-49)
[2017-10-11 03:57] LABS: ALKALINE PHOSPHATASE 61 IU/L (3-129)
[2017-10-11 12:51] LABS: BASE EXCESS -6.1 mEq/L (-3 to +3); BICARBONATE 17.3 mEq/L (22-26); CARBOXY HGB 1.2 % (0-5); METHEMOGLOBIN 2.9 % (0-1.5); PCO2 26 mm Hg (35-45); pH 7.43 (7.35-7.45)
[2017-10-11 12:52] LABS: COMMENTS - BLOOD GASES A+C+; DEVICE 980; FI02 30 %; MODE TC; PO2 125 mm Hg (80-100); SITE RR
[2017-10-12] VITALS (20 sets, daily range): BP systolic 90–136; BP diastolic 60–89
[2017-10-12 04:52] LABS: BASOPHIL (%) 0.2 % (0-1); EOSINOPHIL (%) 1.1 % (0-5); EOSINOPHIL COUNT 0.2 K/uL (0-0.3); HEMATOCRIT 23.5 % (36.0-46.0); HEMOGLOBIN 7.5 G/DL (11.9-15.5); IMMATURE GRANULOCYTE (%) 1.3 % (0.0-0.7); LYMPHOCYTE (%) 14.1 % (15-42); LYMPHOCYTE COUNT 2.6 K/uL (1.0-2.8); MCH 30.2 PG (29.0-34.0); MCHC 31.9 G/DL (30.0-36.0); MCV 94.8 FL (83-99); MONOCYTE (%) 7.3 % (3-12); MONOCYTE COUNT 1.3 K/uL (0-0.8); NEUTROPHIL COUNT 13.8 K/uL (1.8-6.4); PLATELET COUNT 266 K/uL (156-360); RBC DIS.WIDTH-CV 18.6 % (11.8-14.6); RBC DIS.WIDTH-SD 62.5 % (39-53); RED BLOOD COUNT 2.48 M/uL (3.80-5.20); WHITE BLOOD COUNT 18.2 K/uL (4.1-10.2)
[2017-10-12 05:01] LABS: ALBUMIN 2.3 g/dL (3.2-4.8); CHLORIDE 120 mEq/L (99-109); SODIUM 145 mEq/L (136-147)
[2017-10-12 05:04] LABS: GLUCOSE 79 mg/dL (70-99)
[2017-10-12 05:07] LABS: ALBUMIN 2.3 g/dL (3.2-4.8); CHLORIDE 120 mEq/L (99-109); CREATININE 1.1 mg/dL (0.6-1.3); GFR ESTIMATE (CALCULATED) > 59 mL/min/; PHOSPHORUS 2.4 mg/dL (2.5-4.9); SODIUM 144 mEq/L (136-147)
[2017-10-12 05:08] LABS: MAGNESIUM 1.6 mg/dL (1.3-2.7); MAGNESIUM 1.7 mg/dL (1.3-2.7); UREA NITROGEN (BUN) 20 mg/dL (9-23)
[2017-10-12 05:09] LABS: GLUCOSE 79 mg/dL (70-99); TOTAL PROTEIN 4.9 g/dL (6.4-8.3)
[2017-10-12 05:11] LABS: TOTAL BILIRUBIN 0.4 mg/dL (0.0-1.0)
[2017-10-12 05:13] LABS: ALKALINE PHOSPHATASE 65 IU/L (3-129); CREATININE 1.1 mg/dL (0.6-1.3); GFR ESTIMATE (CALCULATED) > 59 mL/min/; PHOSPHORUS 2.3 mg/dL (2.5-4.9)
[2017-10-12 05:14] LABS: UREA NITROGEN (BUN) 20 mg/dL (9-23)
[2017-10-12 05:15] LABS: AST (GOT) 11 IU/L (2-34)
[2017-10-12 05:16] LABS: ALT (GPT) 5 IU/L (3-49)
[2017-10-12 06:55] LABS: INTER. NORMALIZED RATIO 1.4
[2017-10-12 06:58] LABS: PTT 57.7 SEC (25-37)
[2017-10-13] VITALS (9 sets, daily range): BP systolic 98–129; BP diastolic 51–78
[2017-10-13 05:29] LABS: BASOPHIL (%) 0.3 % (0-1); EOSINOPHIL (%) 2.1 % (0-5); EOSINOPHIL COUNT 0.3 K/uL (0-0.3); HEMATOCRIT 22.3 % (36.0-46.0); HEMOGLOBIN 6.9 G/DL (11.9-15.5); IMMATURE GRANULOCYTE (%) 0.6 % (0.0-0.7); LYMPHOCYTE (%) 23.6 % (15-42); LYMPHOCYTE COUNT 2.8 K/uL (1.0-2.8); MCH 30.3 PG (29.0-34.0); MCHC 30.9 G/DL (30.0-36.0); MCV 97.8 FL (83-99); MONOCYTE (%) 12.3 % (3-12); MONOCYTE COUNT 1.4 K/uL (0-0.8); NEUTROPHIL (%) 61.1 % (45-76); NEUTROPHIL COUNT 7.2 K/uL (1.8-6.4); PLATELET COUNT 243 K/uL (156-360); RBC DIS.WIDTH-SD 63.9 % (39-53); RED BLOOD COUNT 2.28 M/uL (3.80-5.20); WHITE BLOOD COUNT 11.7 K/uL (4.1-10.2)
[2017-10-13 05:55] LABS: ALKALINE PHOSPHATASE 50 IU/L (3-129); ALT (GPT) 4 IU/L (3-49); AST (GOT) 8 IU/L (2-34); CHLORIDE 114 MEQ/L (99-109); CREATININE 1.1 MG/DL (0.6-1.3); GFR ESTIMATE (CALCULATED) > 59 mL/min/; GLUCOSE 85 mg/dL (70-99); MAGNESIUM 1.9 mg/dl (1.3-2.7); PHOSPHORUS 3.5 mg/dL (2.5-4.9); POTASSIUM 4.8 MEQ/L (3.7-5.4); SODIUM 142 MEQ/L (136-147); TOTAL BILIRUBIN 0.3 MG/DL (0.0-1.0); TOTAL PROTEIN 4.9 G/DL (6.4-8.3); UREA NITROGEN (BUN) 17 mg/dL (9-23)
[2017-10-13 07:36] LABS: HEMATOCRIT 22.3 % (36.0-46.0); MCH 29.6 PG (29.0-34.0); MCHC 30.5 G/DL (30.0-36.0); PLATELET COUNT 244 K/uL (156-360); RBC DIS.WIDTH-CV 18.1 % (11.8-14.6); RBC DIS.WIDTH-SD 62.8 % (39-53); WHITE BLOOD COUNT 10.4 K/uL (4.1-10.2)
[2017-10-13 07:38] LABS: HEMOGLOBIN 6.8 G/DL (11.9-15.5)
[2017-10-13 19:21] LABS: HEMATOCRIT 29.8 % (36.0-46.0)
[2017-10-13 19:23] LABS: HEMOGLOBIN 9.4 G/DL (11.9-15.5)
[2017-10-13 19:25] LABS: ABSOLUTE RETICULOCYTE CT. 0.1 M/uL (0.02-0.08); IMM.RETIC FRACTION 10.6 % (3-19); RETIC HGB EQUIVALENT 32.9 (28-36); RETICULOCYTE COUNT 1.8 % (0.5-1.8)
[2017-10-13 20:22] LABS: FOLIC ACID (FOLATE) 8.8 NG/ML (5.0-22.0)
[2017-10-14 00:29] VITALS: BP 125/64
[2017-10-14 04:36] VITALS: BP 118/76
[2017-10-14 05:38] LABS: BASOPHIL (%) 0.2 % (0-1); EOSINOPHIL (%) 0.1 % (0-5); HEMOGLOBIN 8.8 G/DL (11.9-15.5); IMMATURE GRANULOCYTE (%) 1.9 % (0.0-0.7); LYMPHOCYTE (%) 18.6 % (15-42); LYMPHOCYTE COUNT 1.7 K/uL (1.0-2.8); MCH 29.9 PG (29.0-34.0); MCHC 31.4 G/DL (30.0-36.0); MCV 95.2 FL (83-99); MONOCYTE (%) 9.3 % (3-12); MONOCYTE COUNT 0.9 K/uL (0-0.8); NEUTROPHIL (%) 69.9 % (45-76); NEUTROPHIL COUNT 6.4 K/uL (1.8-6.4); PLATELET COUNT 271 K/uL (156-360); RBC DIS.WIDTH-CV 17.2 % (11.8-14.6); RBC DIS.WIDTH-SD 58.7 % (39-53); WHITE BLOOD COUNT 9.2 K/uL (4.1-10.2)
[2017-10-14 05:46] LABS: RED BLOOD COUNT 2.94 M/uL (3.80-5.20)
[2017-10-14 05:50] LABS: ALBUMIN 2.1 G/DL (3.2-4.8); ALKALINE PHOSPHATASE 52 IU/L (3-129); ALT (GPT) 4 IU/L (3-49); AST (GOT) 9 IU/L (2-34); CHLORIDE 111 MEQ/L (99-109); CREATININE 1.3 MG/DL (0.6-1.3); GFR ESTIMATE (CALCULATED) 51 mL/min/; GLUCOSE 97 mg/dL (70-99); POTASSIUM 5.5 MEQ/L (3.7-5.4); SODIUM 142 MEQ/L (136-147); TOTAL BILIRUBIN 0.3 MG/DL (0.0-1.0); TOTAL PROTEIN 5.4 G/DL (6.4-8.3); UREA NITROGEN (BUN) 19 mg/dL (9-23)
[2017-10-14 08:46] VITALS: BP 90/50
[2017-10-14 12:23] VITALS: BP 120/61
[2017-10-14 16:48] VITALS: BP 115/73
[2017-10-14 21:15] VITALS: BP 121/76
[2017-10-15 00:15] VITALS: BP 111/65
[2017-10-15 05:15] VITALS: BP 126/85
[2017-10-15 06:07] LABS: BASOPHIL (%) 0.5 % (0-1); BASOPHIL COUNT 0.1 K/uL (0-0.1); EOSINOPHIL (%) 1.1 % (0-5); EOSINOPHIL COUNT 0.1 K/uL (0-0.3); HEMOGLOBIN 8.9 G/DL (11.9-15.5); IMMATURE GRANULOCYTE (%) 2.2 % (0.0-0.7); LYMPHOCYTE (%) 30.8 % (15-42); LYMPHOCYTE COUNT 3.1 K/uL (1.0-2.8); MCH 30.6 PG (29.0-34.0); MCHC 31.8 G/DL (30.0-36.0); MCV 96.2 FL (83-99); MONOCYTE (%) 11.7 % (3-12); MONOCYTE COUNT 1.2 K/uL (0-0.8); NEUTROPHIL (%) 53.7 % (45-76); NEUTROPHIL COUNT 5.3 K/uL (1.8-6.4); PLATELET COUNT 273 K/uL (156-360); RBC DIS.WIDTH-CV 16.9 % (11.8-14.6); RBC DIS.WIDTH-SD 57.2 % (39-53); RED BLOOD COUNT 2.91 M/uL (3.80-5.20); WHITE BLOOD COUNT 9.9 K/uL (4.1-10.2)
[2017-10-15 07:30] VITALS: BP 108/68
[2017-10-15 09:58] LABS: ALBUMIN 2.2 G/DL (3.2-4.8); ALKALINE PHOSPHATASE 50 IU/L (3-129); ALT (GPT) 5 IU/L (3-49); AST (GOT) 10 IU/L (2-34); CHLORIDE 110 MEQ/L (99-109); CREATININE 1.5 MG/DL (0.6-1.3); GFR ESTIMATE (CALCULATED) 44 mL/min/; GLUCOSE 80 mg/dL (70-99); POTASSIUM 5.3 MEQ/L (3.7-5.4); SODIUM 141 MEQ/L (136-147); TOTAL BILIRUBIN 0.3 MG/DL (0.0-1.0); TOTAL PROTEIN 5.4 G/DL (6.4-8.3); UREA NITROGEN (BUN) 21 mg/dL (9-23)
[2017-10-15 11:12] VITALS: BP 99/67
[2017-10-15 16:10] VITALS: BP 117/68
[2017-10-15 20:20] VITALS: BP 125/71
[2017-10-16 01:14] VITALS: BP 130/71
[2017-10-16 05:34] VITALS: BP 122/80
[2017-10-16 06:37] LABS: BASOPHIL (%) 0.3 % (0-1); EOSINOPHIL (%) 0.5 % (0-5); EOSINOPHIL COUNT 0.1 K/uL (0-0.3); HEMATOCRIT 27.7 % (36.0-46.0); HEMOGLOBIN 8.6 G/DL (11.9-15.5); IMMATURE GRANULOCYTE (%) 2.1 % (0.0-0.7); LYMPHOCYTE (%) 24.2 % (15-42); LYMPHOCYTE COUNT 2.7 K/uL (1.0-2.8); MCV 96.5 FL (83-99); MONOCYTE (%) 10.8 % (3-12); MONOCYTE COUNT 1.2 K/uL (0-0.8); NEUTROPHIL (%) 62.1 % (45-76); NEUTROPHIL COUNT 6.8 K/uL (1.8-6.4); PLATELET COUNT 291 K/uL (156-360); RBC DIS.WIDTH-CV 16.5 % (11.8-14.6); RBC DIS.WIDTH-SD 56.8 % (39-53); RED BLOOD COUNT 2.87 M/uL (3.80-5.20)
[2017-10-16 07:07] LABS: ALBUMIN 2.2 G/DL (3.2-4.8); ALKALINE PHOSPHATASE 43 IU/L (3-129); ALT (GPT) 6 IU/L (3-49); AST (GOT) 12 IU/L (2-34); CHLORIDE 109 MEQ/L (99-109); CREATININE 1.4 MG/DL (0.6-1.3); GFR ESTIMATE (CALCULATED) 47 mL/min/; GLUCOSE 80 mg/dL (70-99); POTASSIUM 4.8 MEQ/L (3.7-5.4); SODIUM 139 MEQ/L (136-147); UREA NITROGEN (BUN) 22 mg/dL (9-23)
[2017-10-16 07:11] LABS: TOTAL BILIRUBIN 0.2 MG/DL (0.0-1.0)
[2017-10-16] MEDS ORDERED: LEVETIRACETAM500 MG PO (08:01)
[2017-10-16] MEDS ORDERED: LEVOTHYROXINE100 MCG PO (08:02)
[2017-10-16] MEDS ORDERED: DULERA 100 MCG/13 GM IH (08:02)
[2017-10-16] MEDS ORDERED: XARELTO20 MG PO ×2 (08:04→09:48)
[2017-10-16] MEDS ORDERED: OXYCODONE-APAP1 EAC6 PO (08:04)
[2017-10-16] MEDS ORDERED: ERGOCALCIF50000 UNIT PO (08:05)
[2017-10-16] MEDS ORDERED: AERONEB GO NEB1 EACH MC (08:22)
[2017-10-16] MEDS ORDERED: DUONEB 2.5-0.5 M3 ML AEROSOL (08:22)
[2017-10-16 08:43] VITALS: BP 112/61
[2017-10-16] MEDS ORDERED: ADVAIR 100/501 DISK IH (09:04)
[2017-10-16] MEDS ORDERED: XARELTO15 MG PO (09:48)
[2017-10-21 11:58] LABS: Albumin, CSF ND mg/dL; IgG Index, CSF ND index; Synthesis Rate IgG, CSF ND mg/24hr
[2017-10-21 11:59] LABS: Albumin, Serum 2.2 (L) g/dL; IgG, Serum 890 mg/dL
== END 2017-10-16 09:58 | disposition home health service (06) | DRG 853 ==
LOC: EME 13:16 → 4EAST 15:03 → 4WEST 15:03 → EDOF 15:03 → 5SOUTH 15:03 → ENRESERV 15:08 → ENRESERVTM 15:18 → ENRESERVDT 15:18 → CANRESERV 15:18 → 4WEST 15:37 → ENRESERV 09-28 18:22 → 5SOUTH 09-28 23:09 → ENRESERV 10-06 00:58 → 4WEST 10-06 01:03 → ENRESERV 10-12 23:06 → 4EAST 10-12 23:59
PROVIDERS: Anesthesiology; Emergency Medicine; Hospitalist; Internal Medicine; Internal Medicine Hematology & Oncology; Internal Medicine Nephrology; Internal Medicine Pulmonary Disease; Physician Assistant Medical; Specialist; Surgery
PROC: 30233N1 Transfusion of Nonautologous Red Blood Cells into Peripheral Vein, Percutaneous Approach (ICD-10-PCS; principal; 2017-10-01)
PROC: 0W993ZZ Drainage of Right Pleural Cavity, Percutaneous Approach (ICD-10-PCS; 2017-10-06)
PROC: 5A1955Z Respiratory Ventilation, Greater than 96 Consecutive Hours (ICD-10-PCS; 2017-10-06)
PROC: 0BH17EZ Insertion of Endotracheal Airway into Trachea, Via Natural or Artificial Opening (ICD-10-PCS; 2017-10-06)
PROC: 02HV33Z Insertion of Infusion Device into Superior Vena Cava, Percutaneous Approach (ICD-10-PCS; 2017-10-06)
PROC: 0B9G8ZZ Drainage of Left Upper Lung Lobe, Via Natural or Artificial Opening Endoscopic (ICD-10-PCS; 2017-10-08)
PROC: 0B9J8ZZ Drainage of Left Lower Lung Lobe, Via Natural or Artificial Opening Endoscopic (ICD-10-PCS; 2017-10-08)
PROC: 0BC68ZZ Extirpation of Matter from Right Lower Lobe Bronchus, Via Natural or Artificial Opening Endoscopic (ICD-10-PCS; 2017-10-08)
PROC: 0BC58ZZ Extirpation of Matter from Right Middle Lobe Bronchus, Via Natural or Artificial Opening Endoscopic (ICD-10-PCS; 2017-10-08)
PROC: 0BC48ZZ Extirpation of Matter from Right Upper Lobe Bronchus, Via Natural or Artificial Opening Endoscopic (ICD-10-PCS; 2017-10-08)
PROC: 009U3ZX Drainage of Spinal Canal, Percutaneous Approach, Diagnostic (ICD-10-PCS; 2017-10-09)
PROC: 0B9D8ZX Drainage of Right Middle Lung Lobe, Via Natural or Artificial Opening Endoscopic, Diagnostic (ICD-10-PCS; 2017-10-10)
PROC: 0B9C8ZX Drainage of Right Upper Lung Lobe, Via Natural or Artificial Opening Endoscopic, Diagnostic (ICD-10-PCS; 2017-10-10)
PROC: 0B9F8ZX Drainage of Right Lower Lung Lobe, Via Natural or Artificial Opening Endoscopic, Diagnostic (ICD-10-PCS; 2017-10-10)
DX: A41.9 Sepsis, unspecified organism (principal); R65.21 Severe sepsis with septic shock; N39.0 Urinary tract infection, site not specified; N17.0 Acute kidney failure with tubular necrosis; J18.9 Pneumonia, unspecified organism; Y95 Nosocomial condition; J96.01 Acute respiratory failure with hypoxia; J96.02 Acute respiratory failure with hypercapnia; J01.00 Acute maxillary sinusitis, unspecified; A04.72 Enterocolitis due to Clostridium difficile, not specified as recurrent; R19.5 Other fecal abnormalities; I82.432 Acute embolism and thrombosis of left popliteal vein; I82.442 Acute embolism and thrombosis of left tibial vein; E87.5 Hyperkalemia; E87.0 Hyperosmolality and hypernatremia; E83.39 Other disorders of phosphorus metabolism; L22 Diaper dermatitis; R56.9 Unspecified convulsions; G04.00 Acute disseminated encephalitis and encephalomyelitis, unspecified; J90 Pleural effusion, not elsewhere classified; T17.990A Other foreign object in respiratory tract, part unspecified in causing asphyxiation, initial encounter; E87.2 Acidosis; E86.0 Dehydration; E86.1 Hypovolemia; L89.220 Pressure ulcer of left hip, unstageable; E87.1 Hypo-osmolality and hyponatremia; E87.6 Hypokalemia; E83.51 Hypocalcemia; D69.6 Thrombocytopenia, unspecified; E03.9 Hypothyroidism, unspecified; E55.9 Vitamin D deficiency, unspecified; J32.0 Chronic maxillary sinusitis; F43.25 Adjustment disorder with mixed disturbance of emotions and conduct; G89.29 Other chronic pain; I25.10 Atherosclerotic heart disease of native coronary artery without angina pectoris; J43.9 Emphysema, unspecified; N18.3 Chronic kidney disease, stage 3 (moderate); D63.1 Anemia in chronic kidney disease; N25.81 Secondary hyperparathyroidism of renal origin; F41.9 Anxiety disorder, unspecified; F32.9 Major depressive disorder, single episode, unspecified; R00.0 Tachycardia, unspecified; R64 Cachexia; F17.200 Nicotine dependence, unspecified, uncomplicated; I82.513 Chronic embolism and thrombosis of femoral vein, bilateral; I82.522 Chronic embolism and thrombosis of left iliac vein; I82.592 Chronic embolism and thrombosis of other specified deep vein of left lower extremity; N31.9 Neuromuscular dysfunction of bladder, unspecified; G82.20 Paraplegia, unspecified; S24.102S Unspecified injury at T2-T6 level of thoracic spinal cord, sequela; Z86.14 Personal history of Methicillin resistant Staphylococcus aureus infection; Z91.14 Patient's other noncompliance with medication regimen; I25.2 Old myocardial infarction; Z98.1 Arthrodesis status; Z88.0 Allergy status to penicillin; Z95.828 Presence of other vascular implants and grafts; Z68.1 Body mass index [BMI] 19.9 or less, adult; Z93.6 Other artificial openings of urinary tract status
CPT/HCPCS: 36600; 70450; 70551; 71045; 71046; 71250; 74176; 76770; 76942; 80048; 80048 91; 80053; 80069; 80306 90; 81003; 82040; 82040 90; 82042 90; 82103 90; 82247; 82272; 82306; 82330; 82436; 82533 91; 82550; 82553; 82570; 82607; 82728; 82746; 82784 90; 82803; 82945; 82948; 83010 90; 83605; 83615; 83615 91; 83735; 83873 90; 83880; 83916 90; 83935; 83970; 84100; 84133; 84145 90; 84146; 84157; 84295; 84300; 84439; 84443; 84478; 84540; 84550; 84702; 85007; 85014; 85018; 85025; 85025 91; 85027; 85046; 85060; 85379; 85384; 85610; 85730; 86022 90; 86141; 86592 90; 86617 90; 86618 90; 86850; 86900; 86901; 86920; 87040; 87070; 87075; 87086; 87102; 87106; 87205; 87252 90; 87493; 87502; 87529 90; 87641; 87899; 88108; 88305; 89051; 93005; 93970; 94003; 94010; 94640; 94640 76; 94667; 94668; 94760; 94799; 95819; 99202; 99281; 99285; C1751; J0610; J0692; J1100; J1200; J1270; J1630; J1652; J1940; J1953; J1956; J2020; J2060; J2185; J2250; J2270; J2405; J2704; J3010; J3475; J3480; J7030; J7040; J7050; J7070; J7120; J7512; P9016; P9045; S0028; S0030

== ENCOUNTER 2018-03-04 13:04 | Inpatient (IN) | payer OTHER ==
[~2018-03-04] VITALS: Ht 154.9 cm; Wt 68.2 kg
[~2018-03-04 13:04] MED LIST changes: +ADVAIR 100/501 DISK IH; +AERONEB GO NEB1 EACH MC; +DEXTROAMP-AMPHE15 MG PO; +DULERA 100 MCG/13 GM IH; +DUONEB 2.5-0.5 M3 ML AEROSOL; +LEVETIRACETAM500 MG PO; +LEVOFLOXACIN250 MG PO; +LEVOTHYROXINE100 MCG PO; +OXYCODONE-APAP1 EAC6 PO; +OXYCONTIN15 MG PO; +PROAIR HFA8.5 GM IH
[2018-03-04 14:17] LABS: HEMATOCRIT 33.2 % (36.0-46.0); HEMOGLOBIN 11.8 G/DL (11.9-15.5); MCH 30.6 PG (29.0-34.0); MCHC 35.5 G/DL (30.0-36.0); NRBC (%) 0.3 /100 WBC (0-0); PLATELET COUNT 239 K/uL (156-360); RBC DIS.WIDTH-CV 16.5 % (11.8-14.6); RBC DIS.WIDTH-SD 50.6 % (39-53); RED BLOOD COUNT 3.86 M/uL (3.80-5.20)
[2018-03-04 14:22] LABS: WHITE BLOOD COUNT 33.8 K/uL (4.1-10.2)
[2018-03-04 14:36] LABS: ALBUMIN 3.6 g/dL (3.2-4.8); CHLORIDE 107 mEq/L (99-109); POTASSIUM 2.8 mEq/L (3.7-5.4); SODIUM 129 mEq/L (136-147)
[2018-03-04 14:38] LABS: GLUCOSE 100 mg/dL (70-99)
[2018-03-04 14:39] LABS: TOTAL PROTEIN 7.3 g/dL (6.4-8.3)
[2018-03-04 14:40] LABS: TOTAL BILIRUBIN 0.5 mg/dL (0.0-1.0)
[2018-03-04 14:42] LABS: ALKALINE PHOSPHATASE 164 IU/L (3-129); CREATININE 5.2 mg/dL (0.6-1.3); GFR ESTIMATE (CALCULATED) 10 mL/min/
[2018-03-04 14:44] LABS: AST (GOT) 8 IU/L (2-34)
[2018-03-04 14:45] LABS: ALT (GPT) 4 IU/L (3-49)
[2018-03-04 14:46] LABS: LIPASE 805 U/L (1.0-51.0)
[2018-03-04 14:53] LABS: QUANTITATIVE HCG < 4.0 MIU/ML
[2018-03-04 14:59] LABS: UREA NITROGEN (BUN) 124 mg/dL (9-23)
[2018-03-04 16:40] LABS: CARBON DIOXIDE (BICARBONATE) 5.7 MEQ/L (20-31)
[2018-03-04] MEDS ORDERED: ADVAIR 100/501 DISK IH (17:36)
[2018-03-04] MEDS ORDERED: DUONEB 2.5-0.5 M3 ML AEROSOL (17:36)
[2018-03-04] MEDS ORDERED: PERCOCET 7.51 TABLET PO (17:37)
[2018-03-04] MEDS ORDERED: ADDERALL XR 1515 MG PO (17:39)
[2018-03-04 18:14] LABS: APPEARANCE TURBID ((CLEAR)); BILIRUBIN NEGATIVE; BLOOD SMALL; COLOR YELLOW ((YELLOW)); GLUCOSE (STRIP) NEGATIVE; KETONES 5; LEUKOCYTES SMALL; NITRITE NEGATIVE; PROTEIN (STRIP) 100; SPECIFIC GRAVITY 1.013 (1.000-1.030)
[2018-03-04 18:50] LABS: UCUL ADDED? YES
[2018-03-04 18:55] LABS: AMORPHOUS PHOSPHATE CRYSTALS 4+
[2018-03-04 19:06] LABS: UR CREATININE CONCENTRATION 3.2 MG/DL
[2018-03-04 21:00] VITALS: BP 118/71
[2018-03-04 21:15] LABS: COMMENTS - BLOOD GASES A+C+; DEVICE RA; SITE LR
[2018-03-04 21:16] LABS: CARBOXY HGB 1.3 % (0-5); METHEMOGLOBIN 1.8 % (0-1.5); O2 SATURATION (CALCULATED) 98.6 % (95-99); PCO2 < 19 mm Hg (35-45); PO2 128 mm Hg (80-100); TOTAL RESP RATE 14 resp/min; pH 6.97 (7.35-7.45)
[2018-03-04 22:00] VITALS: BP 93/67
[2018-03-04 23:00] VITALS: BP 116/63
[2018-03-04 23:44] LABS: CHLORIDE 112 MEQ/L (99-109); CREATININE 3.9 MG/DL (0.6-1.3); GFR ESTIMATE (CALCULATED) 14 mL/min/; GLUCOSE 221 mg/dL (70-99); MAGNESIUM 1.8 mg/dl (1.3-2.7); PHOSPHORUS 2.8 mg/dL (2.5-4.9); POTASSIUM 3.8 MEQ/L (3.7-5.4); SODIUM 130 MEQ/L (136-147); UREA NITROGEN (BUN) 106 mg/dL (9-23)
[2018-03-04 23:45] LABS: HIGH-SENS C-REACTIVE PROTEIN > 8.00 MG/DL (0.02-0.20)
[2018-03-05] VITALS (18 sets, daily range): BP systolic 93–127; BP diastolic 38–73
[2018-03-05 03:04] LABS: CHLORIDE 115 mEq/L (99-109); SODIUM 129 mEq/L (136-147)
[2018-03-05 03:05] LABS: MAGNESIUM 1.9 mg/dL (1.3-2.7)
[2018-03-05 03:06] LABS: GLUCOSE 152 mg/dL (70-99)
[2018-03-05 03:09] LABS: PHOSPHORUS 2.2 mg/dL (2.5-4.9)
[2018-03-05 03:10] LABS: CREATININE 4.2 mg/dL (0.6-1.3); GFR ESTIMATE (CALCULATED) 13 mL/min/
[2018-03-05 03:11] LABS: UREA NITROGEN (BUN) 111 mg/dL (9-23)
[2018-03-05 05:20] LABS: BASOPHIL (%) 0.1 % (0-1); EOSINOPHIL (%) 0 % (0-5); HEMATOCRIT 27.7 % (36.0-46.0); HEMOGLOBIN 9.9 G/DL (11.9-15.5); IMMATURE GRANULOCYTE (%) 0.7 % (0.0-0.7); LYMPHOCYTE (%) 1.6 % (15-42); LYMPHOCYTE COUNT 0.4 K/uL (1.0-2.8); MCH 30.7 PG (29.0-34.0); MCHC 35.7 G/DL (30.0-36.0); MCV 85.8 FL (83-99); MONOCYTE (%) 1.6 % (3-12); MONOCYTE COUNT 0.4 K/uL (0-0.8); NEUTROPHIL COUNT 25.7 K/uL (1.8-6.4); NRBC (%) 0.3 /100 WBC (0-0); PLATELET COUNT 211 K/uL (156-360); RBC DIS.WIDTH-CV 16.1 % (11.8-14.6); RBC DIS.WIDTH-SD 49.6 % (39-53); RED BLOOD COUNT 3.23 M/uL (3.80-5.20); WHITE BLOOD COUNT 26.8 K/uL (4.1-10.2)
[2018-03-05 05:43] LABS: ALBUMIN 2.5 G/DL (3.2-4.8); ALKALINE PHOSPHATASE 99 IU/L (3-129); ALT (GPT) 3 IU/L (3-49); AST (GOT) < 7 IU/L (2-34); CHLORIDE 115 MEQ/L (99-109); CREATININE 3.9 MG/DL (0.6-1.3); GFR ESTIMATE (CALCULATED) 14 mL/min/; GLUCOSE 129 mg/dL (70-99); PHOSPHORUS 2.2 mg/dL (2.5-4.9); POTASSIUM 3.5 MEQ/L (3.7-5.4); SODIUM 133 MEQ/L (136-147); TOTAL BILIRUBIN 0.3 MG/DL (0.0-1.0); TOTAL PROTEIN 5.2 G/DL (6.4-8.3); UREA NITROGEN (BUN) 99 mg/dL (9-23)
[2018-03-05 05:44] LABS: MAGNESIUM 1.5 mg/dl (1.3-2.7)
[2018-03-05 09:02] LABS: THYROTROPIN (TSH) 19.1 MIU/L (0.4-5.5)
[2018-03-05 11:06] LABS: MAGNESIUM 1.5 mg/dl (1.3-2.7)
[2018-03-05 11:59] LABS: COMMENTS - BLOOD GASES C+; SITE RB; pH 7.04 (7.35-7.45)
[2018-03-05 12:00] LABS: CARBOXY HGB 1.2 % (0-5); METHEMOGLOBIN 1.6 % (0-1.5); O2 SATURATION (CALCULATED) 96.1 % (95-99); PCO2 < 19 mm Hg (35-45); PO2 128 mm Hg (80-100)
[2018-03-05 14:45] LABS: CHLORIDE 116 MEQ/L (99-109); CREATININE 3.8 MG/DL (0.6-1.3); GFR ESTIMATE (CALCULATED) 15 mL/min/; GLUCOSE 79 mg/dL (70-99); POTASSIUM 3.6 MEQ/L (3.7-5.4); SODIUM 134 MEQ/L (136-147); UREA NITROGEN (BUN) 95 mg/dL (9-23)
[2018-03-05 14:46] LABS: MAGNESIUM 2.5 mg/dl (1.3-2.7); PHOSPHORUS 5.2 mg/dL (2.5-4.9)
[2018-03-05 18:36] LABS: CHLORIDE 115 mEq/L (99-109); POTASSIUM 2.9 mEq/L (3.7-5.4); SODIUM 136 mEq/L (136-147)
[2018-03-05 18:42] LABS: CREATININE 3.7 mg/dL (0.6-1.3); GFR ESTIMATE (CALCULATED) 15 mL/min/; GLUCOSE 132 mg/dL (70-99); MAGNESIUM 2.3 mg/dL (1.3-2.7); PHOSPHORUS 3.8 mg/dL (2.5-4.9)
[2018-03-05 19:02] LABS: UREA NITROGEN (BUN) 101 mg/dL (9-23)
[2018-03-05 19:54] LABS: COMMENTS - BLOOD GASES C+; FI02 21 %; SITE RB
[2018-03-05 19:57] LABS: CARBOXY HGB 0.9 % (0-5); METHEMOGLOBIN 1.2 % (0-1.5); PCO2 19 mm Hg (35-45); PO2 138 mm Hg (80-100); pH 7.27 (7.35-7.45)
[2018-03-05 23:30] LABS: ALBUMIN 2.4 g/dL (3.2-4.8); CHLORIDE 115 mEq/L (99-109); POTASSIUM 3.2 mEq/L (3.7-5.4); SODIUM 139 mEq/L (136-147)
[2018-03-05 23:33] LABS: GLUCOSE 99 mg/dL (70-99)
[2018-03-05 23:36] LABS: CREATININE 3.6 mg/dL (0.6-1.3); GFR ESTIMATE (CALCULATED) 16 mL/min/
[2018-03-05 23:37] LABS: UREA NITROGEN (BUN) 97 mg/dL (9-23)
[2018-03-05 23:39] LABS: PHOSPHORUS 2.2 mg/dL (2.5-4.9)
[2018-03-06] VITALS (24 sets, daily range): BP systolic 81–131; BP diastolic 37–88
[2018-03-06 07:15] LABS: CHLORIDE 113 MEQ/L (99-109); CREATININE 3.4 MG/DL (0.6-1.3); GFR ESTIMATE (CALCULATED) 17 mL/min/; GLUCOSE 134 mg/dL (70-99); POTASSIUM 2.8 MEQ/L (3.7-5.4); SODIUM 144 MEQ/L (136-147); UREA NITROGEN (BUN) 89 mg/dL (9-23)
[2018-03-06 07:16] LABS: MAGNESIUM 1.8 mg/dl (1.3-2.7); PHOSPHORUS 1.1 mg/dL (2.5-4.9)
[2018-03-06 08:15] LABS: HEMATOCRIT 25.7 % (36.0-46.0); MCH 30.8 PG (29.0-34.0); MCHC 31.2 G/DL (30.0-36.0); NRBC (%) 0.1 /100 WBC (0-0); RBC DIS.WIDTH-CV 15.2 % (11.8-14.6); RBC DIS.WIDTH-SD 43.7 % (39-53)
[2018-03-06 08:16] LABS: MCV 98.9 FL (83-99); WHITE BLOOD COUNT 31.9 K/uL (4.1-10.2)
[2018-03-06 08:41] LABS: PLATELET COUNT 127 K/uL (156-360)
[2018-03-06 14:47] LABS: ALBUMIN 2.3 G/DL (3.2-4.8); CHLORIDE 105 MEQ/L (99-109); CREATININE 3.1 MG/DL (0.6-1.3); GFR ESTIMATE (CALCULATED) 19 mL/min/; GLUCOSE 128 mg/dL (70-99); PHOSPHORUS 1.2 mg/dL (2.5-4.9); SODIUM 144 MEQ/L (136-147); UREA NITROGEN (BUN) 76 mg/dL (9-23)
[2018-03-06 14:55] LABS: POTASSIUM 2.4 MEQ/L (3.7-5.4)
[2018-03-06 14:56] LABS: MAGNESIUM 2.5 mg/dl (1.3-2.7)
[2018-03-07] VITALS (19 sets, daily range): BP systolic 101–150; BP diastolic 35–94
[2018-03-07 05:01] LABS: ALBUMIN 2.2 g/dL (3.2-4.8); SODIUM 147 mEq/L (136-147)
[2018-03-07 05:03] LABS: GLUCOSE 114 mg/dL (70-99)
[2018-03-07 05:06] LABS: CHLORIDE 101 mEq/L (99-109); POTASSIUM 4.6 mEq/L (3.7-5.4)
[2018-03-07 05:07] LABS: CREATININE 2.8 mg/dL (0.6-1.3); GFR ESTIMATE (CALCULATED) 21 mL/min/
[2018-03-07 05:08] LABS: UREA NITROGEN (BUN) 64 mg/dL (9-23)
[2018-03-07 05:41] LABS: HEMATOCRIT 18.5 % (36.0-46.0); MCH 30.5 PG (29.0-34.0); MCHC 37.3 G/DL (30.0-36.0); NRBC (%) 0.1 /100 WBC (0-0); PLATELET COUNT 102 K/uL (156-360); RBC DIS.WIDTH-CV 14.6 % (11.8-14.6); RBC DIS.WIDTH-SD 42.2 % (39-53); RED BLOOD COUNT 2.26 M/uL (3.80-5.20); WHITE BLOOD COUNT 24.5 K/uL (4.1-10.2)
[2018-03-07 05:44] LABS: HEMOGLOBIN 6.9 G/DL (11.9-15.5); MCV 81.9 FL (83-99)
[2018-03-08] VITALS (19 sets, daily range): BP systolic 82–163; BP diastolic 49–109
[2018-03-08 06:25] LABS: HEMATOCRIT 22.3 % (36.0-46.0); HEMOGLOBIN 7.8 G/DL (11.9-15.5); MCH 30.4 PG (29.0-34.0); NRBC (%) 0.1 /100 WBC (0-0); PLATELET COUNT 98 K/uL (156-360); RBC DIS.WIDTH-CV 15.5 % (11.8-14.6); RED BLOOD COUNT 2.57 M/uL (3.80-5.20); WHITE BLOOD COUNT 21.1 K/uL (4.1-10.2)
[2018-03-08 06:27] LABS: MCV 86.8 FL (83-99)
[2018-03-08 06:34] LABS: ALBUMIN 2.2 G/DL (3.2-4.8); CHLORIDE 104 MEQ/L (99-109); CREATININE 2.8 MG/DL (0.6-1.3); GFR ESTIMATE (CALCULATED) 21 mL/min/; GLUCOSE 110 mg/dL (70-99); POTASSIUM 3.8 MEQ/L (3.7-5.4); SODIUM 149 MEQ/L (136-147); UREA NITROGEN (BUN) 55 mg/dL (9-23)
[2018-03-08 06:36] LABS: PHOSPHORUS 4.4 mg/dL (2.5-4.9)
[2018-03-09] VITALS (27 sets, daily range): BP systolic 83–123; BP diastolic 53–91
[2018-03-09 05:36] LABS: HEMATOCRIT 19.5 % (36.0-46.0); MCH 30.7 PG (29.0-34.0); MCHC 33.8 G/DL (30.0-36.0); MCV 90.7 FL (83-99); NRBC (%) 0.2 /100 WBC (0-0); PLATELET COUNT 76 K/uL (156-360); RBC DIS.WIDTH-CV 15.9 % (11.8-14.6); RBC DIS.WIDTH-SD 51.3 % (39-53); RED BLOOD COUNT 2.15 M/uL (3.80-5.20); WHITE BLOOD COUNT 17.1 K/uL (4.1-10.2)
[2018-03-09 05:39] LABS: HEMOGLOBIN 6.6 G/DL (11.9-15.5)
[2018-03-09 06:04] LABS: CHLORIDE 109 MEQ/L (99-109); GFR ESTIMATE (CALCULATED) 20 mL/min/; GLUCOSE 120 mg/dL (70-99); PHOSPHORUS 4.6 mg/dL (2.5-4.9); SODIUM 152 MEQ/L (136-147); UREA NITROGEN (BUN) 61 mg/dL (9-23)
[2018-03-09 06:05] LABS: ALBUMIN 2.1 G/DL (3.2-4.8)
[2018-03-09 06:06] LABS: POTASSIUM 2.7 MEQ/L (3.7-5.4)
[2018-03-09 06:38] LABS: MAGNESIUM 2.4 mg/dl (1.3-2.7)
[2018-03-09 07:33] LABS: INTER. NORMALIZED RATIO 1.3
[2018-03-09 07:36] LABS: PTT 32.1 SEC (25-37)
[2018-03-09 16:16] LABS: HEMATOCRIT 22.1 % (36.0-46.0); HEMOGLOBIN 7.5 G/DL (11.9-15.5); MCH 30.9 PG (29.0-34.0); MCHC 33.9 G/DL (30.0-36.0); MCV 90.9 FL (83-99); NRBC (%) 0.2 /100 WBC (0-0); PLATELET COUNT 65 K/uL (156-360); RBC DIS.WIDTH-CV 15.4 % (11.8-14.6); RBC DIS.WIDTH-SD 49.8 % (39-53); RED BLOOD COUNT 2.43 M/uL (3.80-5.20); WHITE BLOOD COUNT 19.5 K/uL (4.1-10.2)
[2018-03-09 16:26] LABS: CHLORIDE 106 mEq/L (99-109)
[2018-03-09 16:27] LABS: GLUCOSE 150 mg/dL (70-99)
[2018-03-09 16:31] LABS: CREATININE 2.9 mg/dL (0.6-1.3); GFR ESTIMATE (CALCULATED) 20 mL/min/
[2018-03-09 16:32] LABS: UREA NITROGEN (BUN) 51 mg/dL (9-23)
[2018-03-09 16:37] LABS: POTASSIUM 3.8 mEq/L (3.7-5.4); SODIUM 142 mEq/L (136-147)
[2018-03-10] VITALS (22 sets, daily range): BP systolic 88–115; BP diastolic 62–87
[2018-03-10 05:50] LABS: HEMATOCRIT 21.2 % (36.0-46.0); MCH 30.2 PG (29.0-34.0); MCV 91.4 FL (83-99); NRBC (%) 0.3 /100 WBC (0-0); PLATELET COUNT 58 K/uL (156-360); RBC DIS.WIDTH-CV 15.7 % (11.8-14.6); RBC DIS.WIDTH-SD 51.6 % (39-53); RED BLOOD COUNT 2.32 M/uL (3.80-5.20); WHITE BLOOD COUNT 15.5 K/uL (4.1-10.2)
[2018-03-10 06:21] LABS: ALBUMIN 3.2 G/DL (3.2-4.8); CHLORIDE 104 MEQ/L (99-109); CREATININE 2.6 MG/DL (0.6-1.3); GFR ESTIMATE (CALCULATED) 23 mL/min/; GLUCOSE 160 mg/dL (70-99); SODIUM 139 MEQ/L (136-147); UREA NITROGEN (BUN) 48 mg/dL (9-23); VANCOMYCIN, TROUGH 16.5 MCG/ML (10-20)
[2018-03-10 06:22] LABS: MAGNESIUM 1.9 mg/dl (1.3-2.7); PHOSPHORUS 2.4 mg/dL (2.5-4.9); POTASSIUM 2.9 MEQ/L (3.7-5.4)
[2018-03-10 18:13] LABS: CHLORIDE 105 mEq/L (99-109); SODIUM 138 mEq/L (136-147)
[2018-03-10 18:14] LABS: POTASSIUM 3.7 mEq/L (3.7-5.4)
[2018-03-10 18:15] LABS: GLUCOSE 159 mg/dL (70-99); MAGNESIUM 2.3 mg/dL (1.3-2.7)
[2018-03-10 18:19] LABS: CREATININE 2.5 mg/dL (0.6-1.3); GFR ESTIMATE (CALCULATED) 24 mL/min/
[2018-03-10 18:20] LABS: UREA NITROGEN (BUN) 40 mg/dL (9-23)
[2018-03-11] VITALS (18 sets, daily range): BP systolic 96–144; BP diastolic 60–97
[2018-03-11 06:09] LABS: HEMATOCRIT 23.9 % (36.0-46.0); HEMOGLOBIN 7.7 G/DL (11.9-15.5); MCH 30.3 PG (29.0-34.0); MCHC 32.2 G/DL (30.0-36.0); MCV 94.1 FL (83-99); NRBC (%) 0.2 /100 WBC (0-0); PLATELET COUNT 69 K/uL (156-360); RBC DIS.WIDTH-CV 15.8 % (11.8-14.6); RBC DIS.WIDTH-SD 54.2 % (39-53); RED BLOOD COUNT 2.54 M/uL (3.80-5.20); WHITE BLOOD COUNT 14.5 K/uL (4.1-10.2)
[2018-03-11 06:13] LABS: CHLORIDE 104 MEQ/L (99-109); CREATININE 2.4 MG/DL (0.6-1.3); GFR ESTIMATE (CALCULATED) 25 mL/min/; GLUCOSE 153 mg/dL (70-99); POTASSIUM 3.1 MEQ/L (3.7-5.4); SODIUM 137 MEQ/L (136-147); UREA NITROGEN (BUN) 52 mg/dL (9-23)
[2018-03-11 15:21] LABS: Heparin Induced Plt Ab Negative (Negative)
[2018-03-11 15:42] LABS: UFH SRA Result Negative (Negative)
[2018-03-11 18:11] LABS: C DIFF TOXIN NEGATIVE (NEGATIVE)
[2018-03-12 04:31] VITALS: BP 115/77
[2018-03-12 06:24] LABS: MCH 31.3 PG (29.0-34.0); MCHC 33.3 G/DL (30.0-36.0); MCV 93.8 FL (83-99); RBC DIS.WIDTH-CV 15.6 % (11.8-14.6); RBC DIS.WIDTH-SD 53.8 % (39-53); RED BLOOD COUNT 2.56 M/uL (3.80-5.20)
[2018-03-12 06:30] LABS: WHITE BLOOD COUNT 31.6 K/uL (4.1-10.2)
[2018-03-12 07:05] LABS: CHLORIDE 110 MEQ/L (99-109); CREATININE 2.3 MG/DL (0.6-1.3); GFR ESTIMATE (CALCULATED) 27 mL/min/; GLUCOSE 128 mg/dL (70-99); MAGNESIUM 1.8 mg/dl (1.3-2.7); PHOSPHORUS 2.3 mg/dL (2.5-4.9); POTASSIUM 3.3 MEQ/L (3.7-5.4); SODIUM 140 MEQ/L (136-147); UREA NITROGEN (BUN) 54 mg/dL (9-23)
[2018-03-12 07:25] LABS: PLAT.SUFFICIENCY DECREASED; PLATELET COUNT 78 K/uL (156-360)
[2018-03-12 08:00] VITALS: BP 124/82
[2018-03-12 12:00] VITALS: BP 123/78
[2018-03-12 19:20] VITALS: BP 137/97
[2018-03-12 23:30] VITALS: BP 136/91
[2018-03-13 04:30] VITALS: BP 148/93
[2018-03-13 07:53] VITALS: BP 142/86
[2018-03-13 09:12] LABS: HEMATOCRIT 25.6 % (36.0-46.0); HEMOGLOBIN 8.2 G/DL (11.9-15.5); MCH 30.5 PG (29.0-34.0); MCV 95.2 FL (83-99); RBC DIS.WIDTH-CV 15.9 % (11.8-14.6); RBC DIS.WIDTH-SD 55.5 % (39-53); RED BLOOD COUNT 2.69 M/uL (3.80-5.20); WHITE BLOOD COUNT 29.2 K/uL (4.1-10.2)
[2018-03-13] MEDS ORDERED: KEFLEX500 MG PO (09:14)
[2018-03-13] MEDS ORDERED: KEPPRA500 MG PO (09:16)
[2018-03-13] MEDS ORDERED: MEDROL DOSEPAK4 MG PO (09:18)
[2018-03-13] MEDS ORDERED: SYNTHROID25 MCG PO (09:19)
[2018-03-13 09:21] LABS: PLATELET COUNT 145 K/uL (156-360)
[2018-03-13] MEDS ORDERED: CALCITRIOL0.25 MCG PO (09:21)
[2018-03-13 09:39] LABS: ALBUMIN 2.9 G/DL (3.2-4.8); CHLORIDE 111 MEQ/L (99-109); CREATININE 2.2 MG/DL (0.6-1.3); GFR ESTIMATE (CALCULATED) 28 mL/min/; GLUCOSE 117 mg/dL (70-99); MAGNESIUM 1.6 mg/dl (1.3-2.7); PHOSPHORUS 3.1 mg/dL (2.5-4.9); POTASSIUM 3.6 MEQ/L (3.7-5.4); SODIUM 141 MEQ/L (136-147); UREA NITROGEN (BUN) 51 mg/dL (9-23)
[2018-03-13 09:45] LABS: INTACT PARATHYROID HORMONE 355 pg/mL (10-69)
[2018-03-13 11:12] VITALS: BP 143/93
[2018-03-13 16:34] VITALS: BP 154/90
== END 2018-03-13 19:05 | disposition home or self-care (01) | DRG 871 ==
LOC: EME 13:04 → 4WEST 17:31 → EDOF 17:31 → 4EAST 17:31 → ENRESERV 17:32 → CANRESERV 17:32 → ENRESERV 17:33 → 4WEST 20:23 → ENRESERV 03-11 20:19 → 4EAST 03-11 22:03
PROVIDERS: Emergency Medicine; Internal Medicine; Internal Medicine Critical Care Medicine; Internal Medicine Nephrology; Internal Medicine Pulmonary Disease; Surgery
DX: A41.59 Other Gram-negative sepsis (principal); G93.40 Encephalopathy, unspecified; L89.303 Pressure ulcer of unspecified buttock, stage 3; R65.21 Severe sepsis with septic shock; N17.9 Acute kidney failure, unspecified; A04.72 Enterocolitis due to Clostridium difficile, not specified as recurrent; E87.0 Hyperosmolality and hypernatremia; E87.4 Mixed disorder of acid-base balance; G82.20 Paraplegia, unspecified; Z68.1 Body mass index [BMI] 19.9 or less, adult; E87.1 Hypo-osmolality and hyponatremia; N39.0 Urinary tract infection, site not specified; N25.81 Secondary hyperparathyroidism of renal origin; L89.220 Pressure ulcer of left hip, unstageable; N25.89 Other disorders resulting from impaired renal tubular function; E83.51 Hypocalcemia; D69.6 Thrombocytopenia, unspecified; B96.1 Klebsiella pneumoniae [K. pneumoniae] as the cause of diseases classified elsewhere; G40.409 Other generalized epilepsy and epileptic syndromes, not intractable, without status epilepticus; N31.9 Neuromuscular dysfunction of bladder, unspecified; F32.9 Major depressive disorder, single episode, unspecified; L89.159 Pressure ulcer of sacral region, unspecified stage; E83.39 Other disorders of phosphorus metabolism; E16.2 Hypoglycemia, unspecified; D64.9 Anemia, unspecified; F41.9 Anxiety disorder, unspecified; R90.82 White matter disease, unspecified; E86.0 Dehydration; E55.9 Vitamin D deficiency, unspecified; K21.9 Gastro-esophageal reflux disease without esophagitis; E87.6 Hypokalemia; R62.7 Adult failure to thrive; M45.9 Ankylosing spondylitis of unspecified sites in spine; E86.1 Hypovolemia; G89.29 Other chronic pain; N18.3 Chronic kidney disease, stage 3 (moderate); E03.9 Hypothyroidism, unspecified; Z87.442 Personal history of urinary calculi; Z87.440 Personal history of urinary (tract) infections; Z86.718 Personal history of other venous thrombosis and embolism; Z86.19 Personal history of other infectious and parasitic diseases; V89.2XXS Person injured in unspecified motor-vehicle accident, traffic, sequela; Z87.891 Personal history of nicotine dependence; I25.2 Old myocardial infarction; Z98.1 Arthrodesis status
CPT/HCPCS: 36600; 70450; 70551; 71045; 71046; 72195; 74176; 76775; 80048; 80048 91; 80053; 80069; 80202; 81003; 82306; 82436; 82533 91; 82570; 82803; 82948; 83605; 83690; 83735; 83970; 84100; 84133; 84145 90; 84300; 84439; 84443; 84630 90; 84702; 85025; 85027; 85610; 85730; 86022 90; 86141; 86850; 86900; 86901; 86920; 87040; 87077; 87086; 87186; 87493; 87641; 87801; 94760; 94799; 97530 GO; 97530 GP; 99281; 99285; A6214; C1751; C9113; J0692; J0696; J1450; J1644; J1720; J1953; J2020; J2060; J2185; J2405; J2920; J3010; J3370; J3475; J3480; J7030; J7040; J7050; J7070; J7120; P9016; P9047